=== PATIENT | male | born 1940 | race Caucasian/White ===

== ENCOUNTER 2021-03-31 20:40 | Emergency (ER) | payer OTHER ==
[~2021-03-31] VITALS: Ht 170.2 cm; Wt 59.3 kg
[~2021-03-31 20:40] MED LIST: ACET325T21 PO; DOCU-153 PO; MAG30ORA2 PO; MULT-246 PO; POLY17PO52 PO
[2021-03-31 20:45] VITALS: BP 133/59
--- NOTE | 2021-03-31 20:53 | ED.ADGEN ---
Past Medical History Past Medical History: Arthritis, Depression, Hypertension Past Surgical History: No Surgical History Smoking Status: Former Smoker Alcohol Use: None Drug Use: None General Adult EDM: Chief Complaint: MECHANICAL FALL HPI: HPI: Patient is a 81 year old male coming in from nursing facility after a fall out of bed. No loss conscious. Patient denies any complaints at this time but has a baseline dementia. No blood thinners. Patient states examinee pain at this time. Review of Systems: Review of Systems: All other systems within normal limits except for as noted in the HPI Allergies: Allergies: Allergies Coded Allergies Type Severity Reaction Last Updated Verified No Known Drug Allergies 03/06/21 No Physical Exam: PE: Constitutional: Well developed, well nourished, no acute distress, non-toxic appearance. [] HENT: Normocephalic, atraumatic, bilateral external ears normal, nose normal. Tenderness to palpation [] Eyes: PERRLA, conjunctiva normal, no discharge. [] Neck: No rigidity, supple, no stridor. No C-spine tenderness step-off or deformity [] Cardiovascular: Regular rate and rhythm, brisk cap refill [] Lungs & Thorax: Non labored symmetric respirations, no tachypnea or respiratory distress [] Abdomen: Soft, nondistended. Skin: Warm, dry, no erythema, no rash. [] Back: Unremarkable Extremities: No deformities, range of motion grossly intact, no lower extremity edema. Palpation of bilateral upper and lower extremities yielded no pain except for in the right shoulder. No chest or back pain. [] Neurologic: Alert and oriented X 3, no focal deficits noted. [] Psychologic: Affect normal, judgement normal, mood normal. [] EKG: EKG: [] Heart Score: C/O Chest Pain: No Risk Factors: Risk Factors: DM, Current or recent (<one month) smoker, HTN, HLP, family history of CAD, obesity. Risk Scores: Score 0 - 3: 2.5% MACE over next 6 weeks - Discharge Home Score 4 - 6: 20.3% MACE over next 6 weeks - Admit for Clinical Observation Score 7 - 10: 72.7% MACE over next 6 weeks - Early Invasive Strategies Radiology/Procedures: Radiology/Procedures: EXAM: XR SHOULDER_RIGHT 2+ VIEWS 03/31/2021 9:01 PM CLINICAL INDICATION: Fall, pain COMPARISON: None TECHNIQUE: 3 views of the right shoulder FINDINGS: The bones are diffusely demineralized, limiting evaluation for nondisplaced fracture. No displaced fracture. Alignment is normal. There is mild acromial clavicular degenerative joint disease. Subacromial space is preserved. There are calcified granulomas in the right lung base. IMPRESSION: No displaced fracture or dislocation. Osteopenia. [] Course & Med Decision Making: Course & Med Decision Making Pertinent Labs and Imaging studies reviewed. (See chart for details) [] Dragon Disclaimer: Dragon Disclaimer: This electronic medical record was generated, in whole or in part, using a voice recognition dictation system. Departure Departure Impression: Primary Impression: Fall from bed Additional Impression: Contusion of right shoulder region Disposition: 01 HOME / SELF CARE / HOMELESS Condition: STABLE Referrals: NGUYEN FONTAINE MD (PCP) Patient Instructions: Fall Prevention and Home Safety Problem Qualifiers JOEL SOLER MD March 31, 2021 20:53
--- NOTE | 2021-03-31 21:35 | RAD ---
EXAM: XR SHOULDER_RIGHT 2+ VIEWS 03/31/2021 9:01 PM CLINICAL INDICATION: Fall, pain COMPARISON: None TECHNIQUE: 3 views of the right shoulder FINDINGS: The bones are diffusely demineralized, limiting evaluation for nondisplaced fracture. No d isplaced fracture. Alignment is normal. There is mild acromial clavicular degenerative joint disease. Subacromial space is preserved. There are calcified granulomas in the right lung base. IMPRESSION: No displaced fracture or dislocation. Osteopenia. Electronically signed by: Sugar Beasley MD (03/31/2021 9:32 PM) [id number]
== END 2021-04-01 00:05 | disposition home or self-care (01) ==
LOC: ER 20:40
DX: S40.011A Contusion of right shoulder, initial encounter (principal); I10 Essential (primary) hypertension; F03.90 Unspecified dementia, unspecified severity, without behavioral disturbance, psychotic disturbance, mood disturbance, and anxiety; Z87.891 Personal history of nicotine dependence; W06.XXXA Fall from bed, initial encounter; Y93.89 Activity, other specified; Y92.89 Other specified places as the place of occurrence of the external cause; Y99.8 Other external cause status
CPT/HCPCS: 73030; 99283

== ENCOUNTER 2021-08-11 12:21 | Inpatient (IN) | payer OTHER ==
[~2021-08-11] VITALS: Ht 170.2 cm; Wt 53.7 kg
[~2021-08-11 12:21] MED LIST changes: +DOCU-148 PO; -DOCU-153 PO
--- NOTE | 2021-08-11 13:11 | PHYS DOC ---
Past Medical History Past Medical History: Arthritis, Depression, Hypertension ([facility]) Past Surgical History: No Surgical History ([facility]) Smoking Status: Former Smoker Alcohol Use: None Drug Use: None ([facility]) General Adult EDM: Chief Complaint: MECHANICAL FALL HPI: HPI: Patient is a 81 year old male who presents from intermediate with reported altered mental status x1 week. Patient is a very poor historian, so paperwork sent by intermediate as primary source. Patient has reportedly been refusing medications for 1 week. He has a suspected U TI with brown-colored urine and decreased urine output. Last night he removed his [place] catheter. Additionally, he has had multiple falls over the same time period. No further history can be obtained at this time. ([facility] [facility]) Review of Systems: Review of Systems: Unable to obtain secondary to patient's mental status. ([facility]) Heart Score: C/O Chest Pain: N/A ([facility]) Current Medications: Current Medications Medications (Trade) Dose Ordered Sig/Art Start Time Stop Time Status Last Admin Dose Admin Sodium Chloride 1,000 ml @ 1,000 mls/hr 1X ONCE 08/11/21 13:15 08/11/21 14:14 ([address] [facility]) Allergies: Allergies: Allergies Coded Allergies Type Severity Reaction Last Updated Verified No Known Drug Allergies 03/06/[address] [facility]) Physical Exam: PE: Constitutional: Thin, no acute distress, non-toxic appearance. HENT: Normocephalic, atraumatic, bilateral external ears normal, oropharynx moist, no oral exudates, some missing dentition, nose normal. Eyes: PERRLA, EOMI, conjunctiva normal, no discharge. Neck: Normal range of motion, no tenderness, supple, no stridor. Cardiovascular: Heart rate regular rhythm, no murmur. Lungs & Thorax: Bilateral breath sounds clear to auscultation. Abdomen: Bowel sounds normal, soft, no tenderness, no masses, no pulsatile masses. Skin: Diffuse ecchymosis of varying stages of healing on bilateral lower ex tremities. Skin otherwise warm, dry, no erythema, no rash. Back: No tenderness, no CVA tenderness. Extremities: No tenderness, no cyanosis, no clubbing, ROM intact, no edema. Neurologic: Alert and oriented x3, motor function 3/5 in extremities x4, normal sensory function, no focal deficits noted. Psychologic: Patient is somewhat uncooperative, but with repetitive requests, obliges. Affect irritable, fair judgment, mood normal. ([facility]) Current Patient Data: Labs: Laboratory Tests Test 08/11/21 13:56 08/11/21 14:08 White Blood Count 6.5 x10^3/uL (4.0-11.0) Red Blood Count 4.45 x10^6/uL (4.30-5.70) Hemoglobin 13.6 g/dL (13.0-17.5) Hematocrit 39.6 % (39.0-53.0) Mean Corpuscular Volume 89 fL (79-100) Mean Corpuscular Hemoglobin 31 pg (25-35) Mean Corpuscular Hemoglobin Concent 34 g/dL (31-37) Red Cell Distribution Width 13.1 % (11.5-14.5) Platelet Count 232 x10^3/uL (140-400) Neutrophils (%) (Auto) 71 % (31-73) Lymphocytes (%) (Auto) 19 % (24-48) Monocytes (%) (Auto) 7 % (0-9) Eosinophils (%) (Auto) 3 % (0-3) Basophils (%) (Auto) 1 % (0-3) Neutrophils # (Auto) 4.6 x10^3/uL (1.8-7.7) Lymphocytes # (Auto) 1.2 x10^3/uL (1.0-4.8) Monocytes # (Auto) 0.5 x10^3/uL (0.0-1.1) Eosinophils # (Auto) 0.2 x10^3/uL (0.0-0.7) Basophils # (Auto) 0.0 x10^3/uL (0.0-0.2) Sodium Level 143 mmol/L (136-145) Potassium Level 4.4 mmol/L (3.5-5.1) Chloride Level 106 mmol/L (98-107) Carbon Dioxide Level 27 mmol/L (21-32) Anion Gap 10 (6-14) Blood Urea Nitrogen 20 mg/dL (8-26) Creatinine 1.1 mg/dL (0.7-1.3) Estimated GFR (Cockcroft-Gault) 63.9 Glucose Level 90 mg/dL (70-99) Lactic Acid Level 1.2 mmol/L (0.4-2.0) Calcium Level 9.1 mg/dL (8.5-10.1) Creatine Kinase 48 U/L (39-308) Urine Collection Type Unknown Urine Color Janet Urine Clarity Clear Urine pH 6.0 (<5.0-8.0) Urine Specific [place] 1.025 (1.000-1.030) Urine Protein 100 mg/dL (NEG-TRACE) Urine Glucose (UA) Negative mg/dL (NEG) Urine Ketones (Stick) Trace mg/dL (NEG) Urine Blood Large (NEG) Urine Nitrite Positive (NEG) Urine Bilirubin Negative (NEG) Urine Urobilinogen Dipstick 1.0 mg/dL (0.2 mg/dL) Urine Leukocyte Esterase Moderate (NEG) Urine RBC >40 /HPF (0-2) Urine WBC >40 /HPF (0-4) Urine Bacteria Many /HPF (0-FEW) Vital Signs: Vital Signs Date Time Temp Pulse Resp B/P (MAP) Pulse Ox O2 Delivery O2 Flow Rate FiO2 08/11/21 12:21 97.9 71 16 131/67 (88) 98 Room Air 97.9 ([address] [facility]) EKG: EKG: EKG Interpreted by Dr. Carter: Regular rate 71 beats per and rhythm with no ectopic beats, some artifact noted. No concerning ST-T wave changes. Regular QR interval. ([facility]) Radiology/Procedures: Radiology/Procedures: PROCEDURE: CT HEAD AND CERVICAL SPINE WO CT HEAD WITHOUT CONTRAST 08/11/2021 1:08 PM Indication: Reason: falls / Spl. Instructions: / History: Comparison: CT of the head and cervical spine March 06, 2021 Procedure: Multidetector CT imaging of the head was performed without the administration of contrast. Findings: There is no evidence of acute intracranial hemorrhage. There is no evidence of acute territorial infarction. Please note that CT is limited for evaluation of acute ischemia. Cavum septum lucidum noted. No mass effect or midline shift is identified . The ventricles and basilar cisterns have an appropriate appearance. No abnormal extra-axial fluid collections are seen. No acute osseous changes are identified. Impression: No evidence of acute intracranial abnormality CT cervical spine without contrast. 08/11/2021 1:08 PM Indication:Reason: falls / Spl. Instructions: / History: Comparison Study: CT of the head and cervical spine March 06, 2021 Technique: Multidetector CT imaging of the cervical spine was obtained without administration of contrast. Findings: There is no evidence of acute fracture or alignment abnormality of the cervical spine. Vertebral body heights are maintained. Diffuse degenerative disc space. Posterior projecting disc osteophyte complex noted. Facet joints remain aligned. No prevertebral soft tissue edema is seen. The craniocervical junction and atlantoaxial junction remain intact.. Impression: No evidence of acute fracture or alignment abnormality of the cervical spine CT DOSING PQRS STATEMENT: One or more of the following individualized dose reduction techniques were utilized for this examination: 1. Automated exposure control 2. Adjustment of the mA and/or kV according to patient size 3. Use of iterative reconstruction technique Electronically signed by: Ishaan Moreau MD (08/11/2021 1:58 PM) [id number] PROCEDURE: PORTABLE CHEST 1V EXAM: Chest, single view. HISTORY: Altered mental status. COMPARISON: 03/06/2021 FINDINGS: A frontal view of the chest is obtained. There is suspected left basilar atelectasis or pleural parenchymal scarring. There are chronic interstitial changes. There are calcified granulomas. There is no consolidation, pleural effusion or pneumothorax. The heart is normal in size. IMPRESSION: Chronic appearing interstitial changes with left basilar atelectasis or scarring. Electronically signed by: Catrina Smith MD (08/11/2021 1:26 PM) [id number] ([facility]) Course & Med Decision Making: Course & Med Decision Making Pertinent Labs and Imaging studies reviewed. (See chart for details) Due to poor history and knowledge of patient's baseline, work-up will exclude sepsis. Will evaluate for head trauma as well as UTI. Work-up today is remarkable only for evidence of UTI. Due to patient's current mental status and reported refusal of medications, he will be admitted for inpatient antibiotic and fluid replacement treatment. ([facility]) Course & Med Decision Making I have reviewed and was available for consultation in the emergency department and I personally evaluated this patient that was seen by midlevel provider. Agree with plan. Bean Carter DO (BEAN CARTER DO) Ashley Disclaimer: Dragon Disclaimer: This electronic medical record was generated, in whole or in part, using a voice recognition dictation system. ([facility] [facility]) Departure Departure Impression: Primary Impression: UTI (urinary tract infection) Qualified Codes: T83.511A - Infection and inflammatory reaction due to indwelling urethral catheter, initial encounter; N39.0 - Urinary tract infection, site not specified Additional Impressions: AMS (altered mental status) Qualified Codes: R41.82 - Altered mental status, unspecified Noncompliance with medication regimen Disposition: ADMITTED INPATIENT Admitting Physician: JUSTINO Fraser) ([facility]) Condition: STABLE Referrals: NGUYEN FONTAINE MD (PCP) [facility] Aug 11, 2021 13:11 BEAN CARTER DO Aug 14, 2021 06:38
[2021-08-11] MEDS ORDERED: IV NORMAL SALINE 1000ML BAG 1,000 ML IV ONE (13:15)
--- NOTE | 2021-08-11 13:28 | RAD ---
EXAM: Chest, single view. HISTORY: Altered mental status. COMPARISON: 03/06/2021 FINDINGS: A frontal view of the chest is obtained. There is suspected left basilar atelectasis or ple ural parenchymal scarring. There are chronic interstitial changes. There are calcified granulomas. Th ere is no consolidation, pleural effusion or pneumothorax. The heart is normal in size. IMPRESSION: Chronic appearing interstitial changes with left basilar atelectasis or scarring. Electronically signed by: Catrina Smith MD (08/11/2021 1:26 PM) [id number]
--- NOTE | 2021-08-11 13:56 | EKG ---
[facility] [address] [place] [address] Test Date: 2021-08-11 Test Time: 13:48:19 Pat Name: HENRY SOUZA Department: Room: Gender: M Degree Clerk: : 1940 Requested By: ALNE MELENDREZ Order Number: [id number] Reading MD: Andrews Roberts Measurements Intervals Anderson Rate: 70 P: OR: QRS: 66 QRSD: 86 T: 52 QT: 388 QTc: 422 Interpretive Statements SINUS RHYTHM Electronically Signed On 08-13-2021 16:48:49 CDT by Andrews Roberts
--- NOTE | 2021-08-11 14:00 | RAD ---
CT HEAD WITHOUT CONTRAST 08/11/2021 1:08 PM Indication: Reason: falls / Spl. Instructions: / History: Comparison: CT of the head and cervical spine March 06, 2021 Procedure: Multidetector CT imaging of the head was performed without the administration of contrast. Findings: There is no evidence of acute intracranial hemorrhage. There is no evidence of acute territ orial infarction. Please note that CT is limited for evaluation of acute ischemia. Cavum septum lucid um noted. No mass effect or midline shift is identified . The ventricles and basilar cisterns have an appropriate appearance. No abnormal extra-axial fluid collections are seen. No acute osseous changes are identified. Impression: No evidence of acute intracranial abnormality CT cervical spine without contrast. 08/11/2021 1:08 PM Indication:Reason: falls / Spl. Instructions: / History: Comparison Study: CT of the head and cervical spine March 06, 2021 Technique: Multidetector CT imaging of the cervical spine was obtained without administration of cont rast. Findings: There is no evidence of acute fracture or alignment abnormality of the cervical spine. Vert ebral body heights are maintained. Diffuse degenerative disc space. Posterior projecting disc osteoph yte complex noted. Facet joints remain aligned. No prevertebral soft tissue edema is seen. The cranio cervical junction and atlantoaxial junction remain intact.. Impression: No evidence of acute fracture or alignment abnormality of the cervical spine CT DOSING PQRS STATEMENT: One or more of the following individualized dose reduction techniques were utilized for this examinat ion: 1. Automated exposure control 2. Adjustment of the mA and/or kV according to patient size 3. Use of iterative reconstruction technique Electronically signed by: Ishaan Moreau MD (08/11/2021 1:58 PM) [id number]
[2021-08-11 14:16] LABS: BASO % 1 % (0-3); EOS # 0.2 x10^3/uL (0.0-0.7); EOS % 3 % (0-3); HEMATOCRIT 39.6 % (39.0-53.0); HEMOGLOBIN 13.6 g/dL (13.0-17.5); LYMPH # 1.2 x10^3/uL (1.0-4.8); LYMPH % 19 % (24-48); MEAN CORPUSCULAR HEMOGLOBIN 31 pg (25-35); MEAN CORPUSCULAR HGB CONC 34 g/dL (31-37); MEAN CORPUSCULAR VOLUME 89 fL (79-100); MONO # 0.5 x10^3/uL (0.0-1.1); MONO % 7 % (0-9); NEUT # 4.6 x10^3/uL (1.8-7.7); NEUT % 71 % (31-73); PLATELET COUNT 232 x10^3/uL (140-400); RED BLOOD COUNT 4.45 x10^6/uL (4.30-5.70); RED CELL DISTRIBUTION WIDTH 13.1 % (11.5-14.5); WHITE BLOOD COUNT 6.5 x10^3/uL (4.0-11.0)
[2021-08-11 14:19] LABS: BILIRUBIN,URINE NEGATIVE (NEG); CLARITY,URINE CLEAR; COLOR,URINE AMBER; NITRITE,URINE POSITIVE (NEG); PROTEIN,URINE 100 mg/dL (NEG-TRACE)
[2021-08-11 14:25] LABS: CALCIUM 9.1 mg/dL (8.5-10.1); CREATININE 1.1 mg/dL (0.7-1.3); GFR 63.9; POTASSIUM 4.4 mmol/L (3.5-5.1)
[2021-08-11 14:34] LABS: BACTERIA,URINE MANY /HPF (0-FEW); RBC,URINE >40 /HPF (0-2); WBC,URINE >40 /HPF (0-4)
--- NOTE | 2021-08-11 16:13 | HP ---
ADMIT DATE: 08/11/2021 CHIEF COMPLAINT: Mechanical fall, UTI, mental status change. HISTORY OF PRESENT ILLNESS: The patient is a pleasant elderly male who resides at one of the nursing homes locally. Basically, he has been developing some mental status change, dysuria and then he had a mechanical fall. While here in the ER, he is noted to have a UTI with moderate leukocyte esterase and greater than 40 white cells. I discussed the case with ER physician. We are going to admit the patient, give him IV antibiotics and fluids. PAST MEDICAL HISTORY: Arthritis, depression, hypertension, previous tobacco abuse. ALLERGIES: None. FAMILY HISTORY: Diabetes. SOCIAL HISTORY: He does not drink, smoke or take drugs. He is retired. MEDICATIONS: Reviewed. Please refer to the MRAD. REVIEW OF SYSTEMS: Unable to obtain. The patient will not participate. He is too confused. PHYSICAL EXAMINATION: VITALS: Within normal limits and are stable. GENERAL: He is pleasantly confused, a little agitated at times. HEENT: Normal cephalic atraumatic, external auditory canals are patent. EYES: Extraocular muscles are intact, pupils are equally round and reactive to light and accommodation. MUSCULOSKELETAL: Well developed, well nourished, good range of motion. ENDOCRINE: No thyromegaly was palpated. LYMPHATICS: No cervical chain or axillary nodes were noted. HEMATOPOIETIC: No bruising. NECK: Supple, no JVD, no thyromegaly was noted. LUNGS: Clear to auscultation in all lung downey without rhonchi or wheezing. HEART: RRR, S1, S2 present. Peripheral pulses intact, no obvious murmurs were noted. ABDOMEN: Soft, nontender. Positive bowel sounds no organomegaly, normal bowel sounds. EXTREMITIES: Without any cyanosis, clubbing, or edema. Pedal pulses intact, Homans sign is negative. NEUROLOGIC: He is pleasantly confused, a little agitated at times. PSYCHIATRIC: He is pleasantly confused, a little agitated at times. SKIN: No ulcerations or rashes, good skin turgor, no jaundice. VASCULAR: Good capillary refill, neurovascular bundle appears to be intact. ASSESSMENT AND PLAN: Urinary tract infection with metabolic encephalopathy. The patient is being admitted. We will give him IV antibiotics, IV fluids, home medications. Deep vein thrombosis prophylaxis. Full code. ROCIO/LAURA DR: ROCIO/nts TID: [id number]
[2021-08-11] MEDS: cefTRIAXone IV Push 1 GM VIAL. IVP SCH (16:51)
[2021-08-11 18:00] VITALS: BP 128/69
[2021-08-11] MEDS ORDERED: MELA3TAB4 PO (18:50)
[2021-08-11] MEDS ORDERED: MIRT-7 PO (18:50)
[2021-08-11] MEDS ORDERED: DOCU100C28 PO (18:50)
[2021-08-11] MEDS ORDERED: IBUP-1027 PO (18:50)
[2021-08-11] MEDS ORDERED: TAMS0.4C97 PO (18:50)
[2021-08-11] MEDS ORDERED: TOLT2CAP PO (18:50)
[2021-08-11] MEDS: IV NORMAL SALINE 1000ML BAG 1,000 ML IV SCH (21:43)
[2021-08-11 23:00] VITALS: BP 201/63
[2021-08-12 03:07] VITALS: BP 111/47
[2021-08-12 07:00] VITALS: BP 119/51
[2021-08-12] MEDS: IV NORMAL SALINE 1000ML BAG 1,000 ML IV SCH ×2 (10:22→18:25)
[2021-08-12 11:00] VITALS: BP 113/45
--- NOTE | 2021-08-12 11:51 | PDOC ---
[employer] PROGRESS NOTE Date of Service DOS: DATE: 08/12/21 TIME: 11:46 Chief Complaint Chief Complaint Acute metabolic and infectious encephalopathy Acute cystitis, urine cultures positive for E. coli Mechanical fall History of depression History of hypertension History of arthritis Continue empiric IV antibiotics Pending urine culture sensitivities Continue PT OT modalities Disposition: Return to snf when UCx sensitivies return History of Present Illness History of Present Illness 81 male who resides at one of the nursing homes locally. Basically, he has been developing some mental status change, dysuria and then he had a mechanical fall. While here in the ER, he is noted to have a UTI with moderate leukocyte esterase and greater than 40 white cells. I discussed the case with ER physician. We are going to admit the patient, give him IV antibiotics and fluids. 08/12/2021 No acute events overnight. Patient seen examined bedside. Resting comfortably without any distress. No concerns nursing. Vitals/I&O Vitals/I&O: Vital Signs Date Time Temp Pulse Resp B/P (MAP) Pulse Ox O2 Delivery O2 Flow Rate FiO2 08/12/21 08:00 Room Air 08/12/21 07:00 97.5 68 19 119/51 (73) 94 97.5 I & O0 08/11/21 08/11/21 08/12/21 15:00 23:00 07:00 Output Total 450 ml Balance -450 ml Physical Exam General: Alert Heart: Regular rate Lungs: Clear, Wheezing, Crackles Abdomen: No tenderness Labs Labs: Laboratory Tests Test 08/11/21 13:56 08/11/21 14:08 White Blood Count 6.5 x10^3/uL (4.0-11.0) Red Blood Count 4.45 x10^6/uL (4.30-5.70) Hemoglobin 13.6 g/dL (13.0-17.5) Hematocrit 39.6 % (39.0-53.0) Mean Corpuscular Volume 89 fL (79-100) Mean Corpuscular Hemoglobin 31 pg (25-35) Mean Corpuscular Hemoglobin Concent 34 g/dL (31-37) Red Cell Distribution Width 13.1 % (11.5-14.5) Platelet Count 232 x10^3/uL (140-400) Neutrophils (%) (Auto) 71 % (31-73) Lymphocytes (%) (Auto) 19 % (24-48) Monocytes (%) (Auto) 7 % (0-9) Eosinophils (%) (Auto) 3 % (0-3) Basophils (%) (Auto) 1 % (0-3) Neutrophils # (Auto) 4.6 x10^3/uL (1.8-7.7) Lymphocytes # (Auto) 1.2 x10^3/uL (1.0-4.8) Monocytes # (Auto) 0.5 x10^3/uL (0.0-1.1) Eosinophils # (Auto) 0.2 x10^3/uL (0.0-0.7) Basophils # (Auto) 0.0 x10^3/uL (0.0-0.2) Sodium Level 143 mmol/L (136-145) Potassium Level 4.4 mmol/L (3.5-5.1) Chloride Level 106 mmol/L (98-107) Carbon Dioxide Level 27 mmol/L (21-32) Anion Gap 10 (6-14) Blood Urea Nitrogen 20 mg/dL (8-26) Creatinine 1.1 mg/dL (0.7-1.3) Estimated GFR (Cockcroft-Gault) 63.9 Glucose Level 90 mg/dL (70-99) Lactic Acid Level 1.2 mmol/L (0.4-2.0) Calcium Level 9.1 mg/dL (8.5-10.1) Creatine Kinase 48 U/L (39-308) Urine Collection Type Unknown Urine Color Janet Urine Clarity Clear Urine pH 6.0 (<5.0-8.0) Urine Specific [place] 1.025 (1.000-1.030) Urine Protein 100 mg/dL (NEG-TRACE) Urine Glucose (UA) Negative mg/dL (NEG) Urine Ketones (Stick) Trace mg/dL (NEG) Urine Blood Large (NEG) Urine Nitrite Positive (NEG) Urine Bilirubin Negative (NEG) Urine Urobilinogen Dipstick 1.0 mg/dL (0.2 mg/dL) Urine Leukocyte Esterase Moderate (NEG) Urine RBC >40 /HPF (0-2) Urine WBC >40 /HPF (0-4) Urine Bacteria Many /HPF (0-FEW) Assessment and Plan Assessmemt and Plan Problems Medical Problems: (1) AMS (altered mental status) Status: Acute (2) Noncompliance with medication regimen Status: Acute (3) UTI (urinary tract infection) Status: Acute Comment Review of Relevant I have reviewed the following items [email or web address] (where applicable) has been applied. Medications: Current Medications Medications (Trade) Dose Ordered Sig/Art Route PRN Reason Start Time Stop Time Status Last Admin Dose Admin Sodium Chloride 1,000 ml @ 1,000 mls/hr 1X ONCE IV 08/11/21 13:15 08/11/21 14:14 DC 08/11/21 14:20 Ceftriaxone Sodium (Rocephin) 1 gm Q24H IVP 08/11/21 16:00 08/11/21 16:51 Sodium Chloride 1,000 ml @ 75 mls/hr [id number] IV 08/11/21 15:45 08/12/21 10:22 Justifications for Admission Other Justification ROSIE CHERRY MD Aug 12, 2021 11:51
[2021-08-12 15:00] VITALS: BP 93/40
[2021-08-12] MEDS: cefTRIAXone IV Push 1 GM VIAL. IVP SCH (16:00)
[2021-08-12 19:00] VITALS: BP 116/54
--- NOTE | 2021-08-12 22:18 | NUR ---
Patient's IV discontinued at shift change, previous nurse Becki charted against giving Rocephin. This nurse started IV in right AC. IV fluids resumed. Pump beeping at 2210. IV was infiltrated, patient's arm red, swollen, painful. Patient was combative, not wanting IV removed. This nurse and tech Kerrie removed IV from arm. No IV access at this time as patient is refusing new IV site or fluids to continue or further treatment at this time.
[2021-08-12 23:00] VITALS: BP 123/59
[2021-08-13 03:00] VITALS: BP 121/62
[2021-08-13 07:00] VITALS: BP 131/60
[2021-08-13] MEDS: IV NORMAL SALINE 1000ML BAG 1,000 ML IV SCH ×2 (07:45→21:05)
--- NOTE | 2021-08-13 10:38 | PDOC ---
[employer] PROGRESS NOTE Date of Service DOS: DATE: 08/13/21 TIME: 10:37 Chief Complaint Chief Complaint Acute metabolic and infectious encephalopathy Acute cystitis, urine cultures positive for E. coli Mechanical fall History of depression History of hypertension History of arthritis Continue empiric IV antibiotics Pending urine culture sensitivities Continue PT OT modalities Disposition: Return to halfway when UCx sensitivies return History of Present Illness History of Present Illness 81 male who resides at one of the nursing homes locally. Basically, he has been developing some mental status change, dysuria and then he had a mechanical fall. While here in the ER, he is noted to have a UTI with moderate leukocyte esterase and greater than 40 white cells. I discussed the case with ER physician. We are going to admit the patient, give him IV antibiotics and fluids. 08/12/2021 No acute events overnight. Patient seen examined bedside. Resting comfortably without any distress. No concerns nursing. 08/13/2021 No acute events overnight. Patient pleasantly confused and just wants his pajama pants on. No concerns nursing at this time. Patient's chart, labs, images were reviewed and discussed with RN Vitals/I&O Vitals/I&O: Vital Signs Date Time Temp Pulse Resp B/P (MAP) Pulse Ox O2 Delivery O2 Flow Rate FiO2 08/13/21 07:00 97.6 73 18 131/60 (83) 97 Room Air 97.6 I & O 08/12/21 08/12/21 08/13/21 15:00 23:00 07:00 Intake Total 360 ml Output Total 400 ml 100 ml 465 ml Balance -400 ml -100 ml -105 ml Physical Exam General: Alert Heart: Regular rate Lungs: Clear, Wheezing, Crackles Abdomen: No tenderness Extremities: No clubbing Skin: No rashes, No breakdown Assessment and Plan Assessmemt and Plan Problems Medical Problems: (1) AMS (altered mental status) Status: Acute (2) Noncompliance with medication regimen Status: Acute (3) UTI (urinary tract infection) Status: Acute Comment Review of Relevant I have reviewed the following items eusebio (where applicable) has been applied. Justifications for Admission Other Justification ROSIE CHERRY MD Aug 13, 2021 10:38
[2021-08-13 11:00] VITALS: BP 106/58
[2021-08-13] MEDS: CEFDINIR 300 MG CAPSULE PO SCH ×2 (13:24→21:00)
[2021-08-13 15:00] VITALS: BP 113/60
[2021-08-13 19:00] VITALS: BP 148/48
[2021-08-13] MEDS: LACTOBACILLUS RHAMNOSUS GG 1 CAPSULE. PO SCH (21:00)
[2021-08-13 23:00] VITALS: BP 125/58
[2021-08-14 07:00] VITALS: BP 107/38
[2021-08-14] MEDS: LACTOBACILLUS RHAMNOSUS GG 1 CAPSULE. PO SCH ×3 (09:58→20:04)
[2021-08-14] MEDS: CEFDINIR 300 MG CAPSULE PO SCH (09:58)
[2021-08-14] MEDS: IV NORMAL SALINE 1000ML BAG 1,000 ML IV SCH ×2 (10:25→20:03)
[2021-08-14] MEDS ORDERED: ACETAMINOPHEN 325 MG TABLET. PO PRN (10:30)
[2021-08-14] MEDS ORDERED: ONDANSETRON PF 4 MG/2 ML VIAL. IVP PRN (10:30)
--- NOTE | 2021-08-14 10:34 | PDOC ---
[facility] [facility] PROGRESS NOTE Date of Service DOS: DATE: 08/14/21 TIME: 10:32 Chief Complaint Chief Complaint Acute metabolic and infectious encephalopathy Acute cystitis, - ESBL UTI Mechanical fall History of depression History of hypertension History of arthritis Continue empiric IV antibiotics Continue PT OT modalities Disposition: Return to group home after completing course of antibiotics History of Present Illness History of Present Illness 81 male who resides at one of the nursing homes locally. Basically, he has been developing some mental status change, dysuria and then he had a mechanical fall. While here in the ER, he is noted to have a UTI with moderate leukocyte esterase and greater than 40 white cells. Admitted on IV rocephin 08/12: No acute events overnight. Patient seen examined bedside. Resting comfortably without any distress. No concerns nursing. 08/13: No acute events overnight. Patient pleasantly confused and just wants his pajama pants on. No concerns nursing at this time. Lost IV acces, given PO cefdinir No overnight events. Urine returned E. coli ESBL. Duckworth catheter still in place. Discussed will need to get several doses of IV meropenem and then p.o. fosfomycin prior to discharge back to SNF. Will obtain CT abdomen pelvis to rule out obstructive uropathy. Vitals/I&O Vitals/I&O: Vital Signs Date Time Temp Pulse Resp B/P (MAP) Pulse Ox O2 Delivery O2 Flow Rate FiO2 08/14/21 08:00 Room Air 08/14/21 07:00 98.2 64 16 107/38 (61) 95 98.2 I & O 08/13/21 08/13/21 08/14/21 15:00 23:00 07:00 Output Total 440 ml 275 ml Balance -440 ml -275 ml Physical Exam General: Alert Heart: Regular rate Lungs: Clear, Wheezing, Crackles Abdomen: No tenderness Extremities: No clubbing Skin: No rashes, No breakdown Assessment and Plan Assessmemt and Plan Problems Medical Problems: (1) AMS (altered mental status) Status: Acute (2) Noncompliance with medication regimen Status: Acute (3) UTI (urinary tract infection) Status: Acute Comment Review of Relevant I have reviewed the following items eusebio (where applicable) has been applied. Medications: Current Medications Medications (Trade) Dose Ordered Sig/Art Route PRN Reason Start Time Stop Time Status Last Admin Dose Admin Lactobacillus Rhamnosus (Culturelle) 1 cap BID PO 08/13/21 21:00 08/14/21 09:58 Cefdinir (Omnicef) 300 mg BID PO 08/13/21 11:00 08/14/21 10:30 DC 08/14/21 09:58 Justifications for Admission Other Justification RAVINDER WIN MD Aug 14, 2021 10:34
[2021-08-14 11:00] VITALS: BP 120/51
[2021-08-14] MEDS: DOCUSATE SODIUM 100 MG CAPSULE. PO SCH ×3 (11:00→20:04)
[2021-08-14] MEDS ORDERED: MEROPENEM 500 MG in IV NORMAL SALINE 50ML 50 ML IV SCH (11:00)
--- NOTE | 2021-08-14 11:56 | CONS ---
DATE OF CONSULTATION: 08/14/2021 REFERRING PHYSICIAN: Dr. Thompson. REASON FOR CONSULTATION: ESBL producing E. coli UTI. HISTORY OF PRESENT ILLNESS: This is an 81-year-old gentleman with dementia who lives in independent living, who does have a Duckworth catheter chronically, he does not know why he has Duckworth catheter, who came in after having a fall. The patient also had a reportedly mental status change. The patient had been receiving Rocephin. The urine culture is positive with ESBL producing E. coli. The patient denies any nausea, vomiting, diarrhea. Denies any chest pain, shortness of breath, abdominal pain, urinary symptoms or bowel symptoms. Denies any fever or chills. PAST MEDICAL HISTORY: Positive for hypertension, arthritis, depression. SOCIAL HISTORY: Negative for smoking, alcohol, or illicit drug use. The patient lives in an assisted care. MEDICATIONS: Reviewed. ALLERGIES: No known drug allergies. CURRENT MEDICATIONS: Reviewed. REVIEW OF SYSTEMS: As per HPI. All other systems reviewed and are negative. PHYSICAL EXAMINATION: GENERAL: Alert and oriented gentleman who is very forgetful, not in distress. VITAL SIGNS: Stable, afebrile. HEENT: NAD. NECK: Supple, no JVP, no lymphadenopathy. LUNGS: Clear. HEART: S1, S2, regular. ABDOMEN: Soft, nontender, no organomegaly. EXTREMITIES: No edema, cyanosis. SKIN: Unremarkable. NEUROLOGIC: The patient is alert, awake, and appropriate. Does answer simple questions, but the memory is very poor. No focal deficit. LABORATORY DATA: White count is normal. BUN and creatinine is normal. Urinalysis showed more than 40 wbc's. Urine culture is positive with ESBL producing E. coli. It is resistant to fluoroquinolone also. CT of the abdomen and pelvis is pending. Rest of the x-ray and CT of the head and neck is unremarkable for any acute changes. IMPRESSION: 1. Catheter associated urinary tract infection with Extended spectrum beta-lactamases producing Escherichia coli. 2. Status post fall. 3. Encephalopathy. 4. Dementia. 5. 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 RECOMMENDATIONS: Advised meropenem. The patient actually can be discharged on IV Invanz to be done at his facility if that can be arranged. We will check the CT. Thank you very much, Dr. Thompson, for giving me opportunity to participate in this patient's care. HELIO/RIN DR: Harvey TID: [id number]
[2021-08-14] MEDS ORDERED: ERTAPENEM 1 GM VIAL IM ONE (13:00)
[2021-08-14] MEDS: OXYBUTYNIN CHLORIDE 5 MG TABLET PO SCH ×3 (13:20→20:05)
[2021-08-14] MEDS: MULTIVITAMIN with MINERAL TABLET. PO SCH (13:20)
--- NOTE | 2021-08-14 13:40 | RAD ---
Study: CT of the abdomen and pelvis without contrast Comparison: None Clinical Indication: UTI, pain, concern for obstructive uropathy/stone Technique: Contiguous axial images are obtained from the apex of the diaphragm to the pelvic floor. S agittal and coronal reformations are evaluated. Dose Reduction: One or more of the following individualized dose reduction techniques were utilized f or this examination: 1. Automated exposure control, 2. Adjustment of the mA and/or kV according to p atient size, 3. Use of iterative reconstruction technique FINDINGS: Evaluation of the solid organ parenchyma is limited by lack of IV Contrast. Evaluation of the hollow enteric structures is limited by Lack of oral contrast. Lung bases: Linear opacities at the lung bases likely atelectasis. Calcifications likely on the basis of prior granulomatous disease. Lower Mediastinum: Grossly unremarkable Liver: Normal in size and contour. Fluid attenuating lesion at the dome the liver likely a cyst. Biliary: No intra or extra hepatic biliary ductal dilatation. Gallbladder: Partially fluid distended and grossly unremarkable with no radiographically discernible stones. No pericholecystic fluid. Pancreas: Normal. Spleen: Grossly unremarkable Adrenals: Grossly unremarkable Kidneys: Free of any hydronephrosis, nephrolithiasis or focal solid parenchymal abnormality. Fluid at tenuation lesion at the lower pole the right kidney likely a cyst. Gastroduodenum: Grossly unremarkable. Bowel: No areas of focal dilatation or adjacent inflammatory change. There is diverticulosis coli wit hout evidence of diverticulitis. Appendix: Not visualized Mesentery: No free or loculated fluid collections. No pathologic lymphadenopathy. Retroperitoneum: No suspicious masses or lymphadenopathy. Bladder: Partially fluid distended and grossly unremarkable. Duckworth balloon is seen within the bladder with small foci of intraluminal air.. Calcification at the dependent posterior wall of the bladder. Reproductive pelvic organs: The prostate is enlarged. Round soft tissue mass in the right inguinal ca nal likely patient's testicle. Small fat-containing right inguinal hernia. Vascular:Aorta is nonaneurysmal. Bones:No suspicious osteoblastic or osteolytic bone lesions. Moderate multifocal facet arthrosis at m ultiple lower lumbar levels IMPRESSION: No nephrolithiasis or hydronephrosis. Patient has a large prostate with a Duckworth within the bladder. T here is moderate distention of the bladder. Calcification at the dependent posterior wall of the blad kaylie may relate to a small bladder calculus. Electronically signed by: Jamshid Barajas (08/14/2021 1:38 PM) [id number]
[2021-08-14 15:00] VITALS: BP 108/47
--- NOTE | 2021-08-14 15:49 | NUR ---
SW following. Discussed with RN, pt from [facility], room air, cardiac diet. PT originally recommending SNF - OT hadn't yet worked with therapy. Therapy tried 3 times to work with patient, but pt declined all three times. Pt on PO abx. SW notified RN of need for PCR COVID test for potential placement. SW will continue to follow.
[2021-08-14 19:00] VITALS: BP 106/44
[2021-08-14] MEDS: MIRTAZAPINE 15 MG TABLET PO SCH ×2 (19:59→20:05)
[2021-08-14] MEDS: TAMSULOSIN 0.4 MG CAP.ER.24H. PO SCH ×2 (19:59→20:05)
[2021-08-14] MEDS ORDERED: NON FORMULARY ITEM (Melatonin 2 TAB) PO SCH (21:00)
[2021-08-14 22:51] VITALS: BP 107/44
[2021-08-15 03:29] VITALS: BP 102/47
[2021-08-15 07:00] VITALS: BP 113/43
--- NOTE | 2021-08-15 07:16 | PDOC ---
[employer] [facility] PROGRESS NOTE Date of Service DOS: DATE: 08/15/21 TIME: 07:15 Chief Complaint Chief Complaint Acute metabolic and infectious encephalopathy Acute cystitis, - ESBL UTI Mechanical fall History of depression History of hypertension History of arthritis Continue empiric IV antibiotics Continue PT OT modalities Disposition: Return to intermediate after completing course of antibiotics History of Present Illness History of Present Illness 81 male who resides at one of the nursing homes locally. Basically, he has been developing some mental status change, dysuria and then he had a mechanical fall. While here in the ER, he is noted to have a UTI with moderate leukocyte esterase and greater than 40 white cells. Admitted on IV rocephin 08/12: No acute events overnight. Patient seen examined bedside. Resting comfortably without any distress. No concerns nursing. 08/13: No acute events overnight. Patient pleasantly confused and just wants his pajama pants on. No concerns nursing at this time. Lost IV acces, given PO cefdinir 08/14: No overnight events. Urine returned E. coli ESBL. Duckworth catheter still in place. Discussed will need to get several doses of IV meropenem and then p.o. fosfomycin prior to discharge back to SNF. Will obtain CT abdomen pelvis to rule out obstructive uropathy. No OE. Refused IV insertion. Given IM invanz. Discussed with ID to give an additional dose of IM Invanz today and fosfomycin 3 doses every other day to complete his course for ESBL UTI. Then to discharge home with home health. Vitals/I&O Vitals/I&O: Vital Signs Date Time Temp Pulse Resp B/P (MAP) Pulse Ox O2 Delivery O2 Flow Rate FiO2 08/15/21 03:29 98.2 57 18 102/47 (65) 96 Room Air 98.2 I & O 08/14/21 08/14/21 08/15/21 15:00 23:00 07:00 Intake Total 240 ml 0 ml Output Total 500 ml Balance 240 ml -500 ml Physical Exam General: Alert Heart: Regular rate Lungs: Clear, Wheezing, Crackles Abdomen: No tenderness Extremities: No clubbing Skin: No rashes, No breakdown Assessment and Plan Assessmemt and Plan Problems Medical Problems: (1) AMS (altered mental status) Status: Acute (2) Noncompliance with medication regimen Status: Acute (3) UTI (urinary tract infection) Status: Acute Comment Review of Relevant I have reviewed the following items eusebio (where applicable) has been applied. Medications: Current Medications Medications (Trade) Dose Ordered Sig/Art Route PRN Reason Start Time Stop Time Status Last Admin Dose Admin Docusate Sodium (Colace) 200 mg BID PO 08/14/21 11:00 08/14/21 11:00 Multivitamins (Thera M Plus) 1 tab DAILY PO 08/14/21 11:00 08/14/21 13:20 Oxybutynin Chloride (Ditropan) 5 mg BID PO 08/14/21 11:00 08/14/21 13:20 Ertapenem (INVanz) 1 gm Q24H ONCE IM 08/14/21 13:00 08/14/21 13:01 DC 08/14/21 13:20 Justifications for Admission Other Justification RAVINDER WIN MD Aug 15, 2021 07:16
[2021-08-15 09:26] LABS: BASO % 1 % (0-3); EOS # 0.6 x10^3/uL (0.0-0.7); EOS % 11 % (0-3); HEMATOCRIT 39.6 % (39.0-53.0); HEMOGLOBIN 13.5 g/dL (13.0-17.5); LYMPH # 1.6 x10^3/uL (1.0-4.8); LYMPH % 29 % (24-48); MEAN CORPUSCULAR HEMOGLOBIN 30 pg (25-35); MEAN CORPUSCULAR HGB CONC 34 g/dL (31-37); MEAN CORPUSCULAR VOLUME 88 fL (79-100); MONO # 0.3 x10^3/uL (0.0-1.1); MONO % 6 % (0-9); NEUT # 2.9 x10^3/uL (1.8-7.7); NEUT % 54 % (31-73); PLATELET COUNT 240 x10^3/uL (140-400); RED BLOOD COUNT 4.48 x10^6/uL (4.30-5.70); RED CELL DISTRIBUTION WIDTH 13.6 % (11.5-14.5); WHITE BLOOD COUNT 5.5 x10^3/uL (4.0-11.0)
[2021-08-15] MEDS ORDERED: FOSF3PAC4 PO (09:50)
[2021-08-15] MEDS: MULTIVITAMIN with MINERAL TABLET. PO SCH (09:51)
[2021-08-15] MEDS: DOCUSATE SODIUM 100 MG CAPSULE. PO SCH ×2 (09:51→17:41)
[2021-08-15] MEDS: LACTOBACILLUS RHAMNOSUS GG 1 CAPSULE. PO SCH ×2 (09:51→17:41)
[2021-08-15] MEDS: OXYBUTYNIN CHLORIDE 5 MG TABLET PO SCH ×2 (09:51→17:41)
[2021-08-15 09:58] LABS: ALBUMIN 2.4 g/dL (3.4-5.0); ALBUMIN/GLOBULIN RATIO 0.8 (1.0-1.7); CALCIUM 8.1 mg/dL (8.5-10.1); GFR 71.4; POTASSIUM 3.8 mmol/L (3.5-5.1); TOTAL BILIRUBIN 0.5 mg/dL (0.2-1.0); TOTAL PROTEIN 5.6 g/dL (6.4-8.2)
--- NOTE | 2021-08-15 10:38 | PDOC ---
Infectious Disease Note Subjective Subjective Patient is feeling good says DEMI SIMMS No nausea vomiting diarrhea abdominal pain Vital Sign Vital Signs Vital Signs Date Time Temp Pulse Resp B/P (MAP) Pulse Ox O2 Delivery O2 Flow Rate FiO2 08/15/21 08:00 Room Air 08/15/21 07:00 97.9 61 18 113/43 (66) 94 97.9 Physical Exam PHYSICAL EXAM PHYSICAL EXAMINATION: GENERAL: Alert and oriented gentleman who is very forgetful, not in distress. VITAL SIGNS: Stable, afebrile. HEENT: NAD. NECK: Supple, no JVP, no lymphadenopathy. LUNGS: Clear. HEART: S1, S2, regular. ABDOMEN: Soft, nontender, no organomegaly. EXTREMITIES: No edema, cyanosis. SKIN: Unremarkable. NEUROLOGIC: The patient is alert, awake, and appropriate. Does answer simple questions, but the memory is very poor. No focal deficit. Labs Lab Laboratory Tests Test 08/14/21 17:55 08/15/21 08:40 SARS-CoV-2 RNA (COLIN) Negative (Negative) White Blood Count 5.5 x10^3/uL (4.0-11.0) Red Blood Count 4.48 x10^6/uL (4.30-5.70) Hemoglobin 13.5 g/dL (13.0-17.5) Hematocrit 39.6 % (39.0-53.0) Mean Corpuscular Volume 88 fL (79-100) Mean Corpuscular Hemoglobin 30 pg (25-35) Mean Corpuscular Hemoglobin Concent 34 g/dL (31-37) Red Cell Distribution Width 13.6 % (11.5-14.5) Platelet Count 240 x10^3/uL (140-400) Neutrophils (%) (Auto) 54 % (31-73) Lymphocytes (%) (Auto) 29 % (24-48) Monocytes (%) (Auto) 6 % (0-9) Eosinophils (%) (Auto) 11 % (0-3) Basophils (%) (Auto) 1 % (0-3) Neutrophils # (Auto) 2.9 x10^3/uL (1.8-7.7) Lymphocytes # (Auto) 1.6 x10^3/uL (1.0-4.8) Monocytes # (Auto) 0.3 x10^3/uL (0.0-1.1) Eosinophils # (Auto) 0.6 x10^3/uL (0.0-0.7) Basophils # (Auto) 0.0 x10^3/uL (0.0-0.2) Sodium Level 142 mmol/L (136-145) Potassium Level 3.8 mmol/L (3.5-5.1) Chloride Level 108 mmol/L (98-107) Carbon Dioxide Level 26 mmol/L (21-32) Anion Gap 8 (6-14) Blood Urea Nitrogen 14 mg/dL (8-26) Creatinine 1.0 mg/dL (0.7-1.3) Estimated GFR (Cockcroft-Gault) 71.4 BUN/Creatinine Ratio 14 (6-20) Glucose Level 71 mg/dL (70-99) Calcium Level 8.1 mg/dL (8.5-10.1) Total Bilirubin 0.5 mg/dL (0.2-1.0) Aspartate Amino Transf (AST/SGOT) 16 U/L (15-37) Alanine Aminotransferase (ALT/SGPT) 12 U/L (16-63) Alkaline Phosphatase 61 U/L (46-116) Total Protein 5.6 g/dL (6.4-8.2) Albumin 2.4 g/dL (3.4-5.0) Albumin/Globulin Ratio 0.8 (1.0-1.7) Micro Urine with ESBL E. coli Objective Assessment IMPRESSION: 1. Catheter associated urinary tract infection with Extended spectrum beta-lactamases producing Escherichia coli. 2. Status post fall. 3. Encephalopathy. 4. Dementia. 5. 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 Plan Plan of Care Patient is getting Invanz IM 1 dose today and if insurance is willing to pay fosfomycin 3 doses alternate day patient can be discharged d/w LUIS Medina MD Aug 15, 2021 10:38
[2021-08-15 11:00] VITALS: BP 114/48
[2021-08-15] MEDS: IV NORMAL SALINE 1000ML BAG 1,000 ML IV SCH (13:05)
[2021-08-15] MEDS ORDERED: ERTAPENEM 1 GM VIAL IM ONE (17:30)
[2021-08-15] MEDS: TAMSULOSIN 0.4 MG CAP.ER.24H. PO SCH (17:41)
[2021-08-15] MEDS: MIRTAZAPINE 15 MG TABLET PO SCH (17:41)
[2021-08-15 19:00] VITALS: BP_SYST 132; BP_SYST 232; BP_DIAS 51
[2021-08-16] MEDS: IV NORMAL SALINE 1000ML BAG 1,000 ML IV SCH ×3 (02:17→21:56)
[2021-08-16 03:00] VITALS: BP 101/47
[2021-08-16 07:00] VITALS: BP 103/49
--- NOTE | 2021-08-16 09:44 | PDOC ---
Infectious Disease Note Subjective Subjective Patient is feeling good says ROS ROS No nausea vomiting diarrhea Vital Sign Vital Signs Vital Signs Date Time Temp Pulse Resp B/P (MAP) Pulse Ox O2 Delivery O2 Flow Rate FiO2 08/16/21 07:00 98.0 60 17 103/49 (67) 97 Room Air 98.0 Physical Exam PHYSICAL EXAM PHYSICAL EXAMINATION: GENERAL: Alert and oriented gentleman who is very forgetful, not in distress. VITAL SIGNS: Stable, afebrile. HEENT: NAD. NECK: Supple, no JVP, no lymphadenopathy. LUNGS: Clear. HEART: S1, S2, regular. ABDOMEN: Soft, nontender, no organomegaly. EXTREMITIES: No edema, cyanosis. SKIN: Unremarkable. NEUROLOGIC: The patient is alert, awake, and appropriate. Does answer simple questions, but the memory is very poor. No focal deficit. Labs Micro Urine with ESBL E. coli Objective Assessment IMPRESSION: 1. Catheter associated urinary tract infection with Extended spectrum beta-lactamases producing Escherichia coli. 2. Status post fall. 3. Encephalopathy. 4. Dementia. 5. 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 Plan Plan of Care Patient is getting Invanz IM 1 dose today and if insurance is willing to pay fosfomycin 3 doses alternate day patient can be discharged d/w LUIS Medina MD Aug 16, 2021 09:44
[2021-08-16] MEDS: MULTIVITAMIN with MINERAL TABLET. PO SCH (09:52)
[2021-08-16] MEDS: LACTOBACILLUS RHAMNOSUS GG 1 CAPSULE. PO SCH ×2 (09:52→20:27)
[2021-08-16] MEDS: OXYBUTYNIN CHLORIDE 5 MG TABLET PO SCH ×2 (09:53→20:27)
[2021-08-16] MEDS: DOCUSATE SODIUM 100 MG CAPSULE. PO SCH ×2 (09:53→20:27)
[2021-08-16 11:00] VITALS: BP 91/44
--- NOTE | 2021-08-16 13:35 | NUR ---
SS following for discharge planning. SS reviewed pt chart and discussed with pt RN. Pt is Assisted Living resident from [facility], ; fax [phone]. Pt is currently on room air. COVID19 negative. PT/OT ordered and pt declining. SS will continue to follow for discharge planning.
[2021-08-16 15:00] VITALS: BP 105/46
--- NOTE | 2021-08-16 18:00 | PDOC ---
[employer] [facility] PROGRESS NOTE Date of Service DOS: DATE: 08/16/21 TIME: 17:58 Chief Complaint Chief Complaint Acute metabolic and infectious encephalopathy Acute cystitis, - ESBL UTI Mechanical fall History of depression History of hypertension History of arthritis Continue empiric IV antibiotics Continue PT OT modalities Disposition: Return to group home after completing course of antibiotics History of Present Illness History of Present Illness 81 male who resides at one of the nursing homes locally. Basically, he has been developing some mental status change, dysuria and then he had a mechanical fall. While here in the ER, he is noted to have a UTI with moderate leukocyte esterase and greater than 40 white cells. Admitted on IV rocephin 08/12: No acute events overnight. Patient seen examined bedside. Resting comfortably without any distress. No concerns nursing. 08/13: No acute events overnight. Patient pleasantly confused and just wants his pajama pants on. No concerns nursing at this time. Lost IV acces, given PO cefdinir 08/14: No overnight events. Urine returned E. coli ESBL. Duckworth catheter still in place. Discussed will need to get several doses of IV meropenem and then p.o. fosfomycin prior to discharge back to SNF. Will obtain CT abdomen pelvis to rule out obstructive uropathy. 08/15: No OE. Refused IV insertion. Given IM invanz. Discussed with ID to give an additional dose of IM Invanz today and fosfomycin 3 doses every other day to complete his course for ESBL UTI. Then to discharge home with home health. 08/16: No complaints today. We will continue IM Invanz. Insurance pending, may provide fosfomycin 3 doses every other day to complete treatment for ESBL UTI. Then likely home with home health. Discussed with RN. Vitals/I&O Vitals/I&O: Vital Signs Date Time Temp Pulse Resp B/P (MAP) Pulse Ox O2 Delivery O2 Flow Rate FiO2 08/16/21 11:00 98.2 65 17 91/44 (60) 99 Room Air 98.2 I & O 08/15/21 08/15/21 08/16/21 15:00 23:00 07:00 Intake Total 0 ml 200 ml Output Total 400 ml 270 ml 800 ml Balance -400 ml -270 ml -600 ml Physical Exam Physical Exam: PHYSICAL EXAMINATION: GENERAL: Alert and oriented gentleman who is very forgetful, not in distress. VITAL SIGNS: Stable, afebrile. HEENT: NAD. NECK: Supple, no JVP, no lymphadenopathy. LUNGS: Clear. HEART: S1, S2, regular. ABDOMEN: Soft, nontender, no organomegaly. EXTREMITIES: No edema, cyanosis. SKIN: Unremarkable. NEUROLOGIC: The patient is alert, awake, and appropriate. Does answer simple questions, but the memory is very poor. No focal deficit. General: Alert Heart: Regular rate Lungs: Clear, Wheezing, Crackles Abdomen: No tenderness Extremities: No clubbing Skin: No rashes, No breakdown Assessment and Plan Assessmemt and Plan Problems Medical Problems: (1) AMS (altered mental status) Status: Acute (2) Noncompliance with medication regimen Status: Acute (3) UTI (urinary tract infection) Status: Acute Comment Review of Relevant I have reviewed the following items eusebio (where applicable) has been applied. Justifications for Admission Other Justification GAY KAUFFMAN MD Aug 16, 2021 17:59
[2021-08-16 19:00] VITALS: BP 100/49
[2021-08-16] MEDS: TAMSULOSIN 0.4 MG CAP.ER.24H. PO SCH (20:27)
[2021-08-16] MEDS: MIRTAZAPINE 15 MG TABLET PO SCH (20:27)
[2021-08-16 23:00] VITALS: BP 98/48
[2021-08-17 03:00] VITALS: BP 103/53
[2021-08-17 07:00] VITALS: BP 106/59
--- NOTE | 2021-08-17 07:41 | PDOC ---
[employer] PROGRESS NOTE Date of Service DOS: DATE: 08/17/21 TIME: 07:36 Chief Complaint Chief Complaint Acute metabolic and infectious encephalopathy Acute cystitis, - ESBL UTI Mechanical fall History of depression History of hypertension History of arthritis Continue empiric IV antibiotics Continue PT OT modalities Disposition: Return to [facility] after completing course of antibiotics History of Present Illness History of Present Illness 81 male who resides at one of the nursing homes locally. Basically, he has been developing some mental status change, dysuria and then he had a mechanical fall. While here in the ER, he is noted to have a UTI with moderate leukocyte esterase and greater than 40 white cells. Admitted on IV rocephin 08/12: No acute events overnight. Patient seen examined bedside. Resting comfortably without any distress. No concerns nursing. 08/13: No acute events overnight. Patient pleasantly confused and just wants his pajama pants on. No concerns nursing at this time. Lost IV acces, given PO cefdinir 08/14: No overnight events. Urine returned E. coli ESBL. Duckworth catheter still in place. Discussed will need to get several doses of IV meropenem and then p.o. fosfomycin prior to discharge back to SNF. Will obtain CT abdomen pelvis to rule out obstructive uropathy. 08/15: No OE. Refused IV insertion. Given IM invanz. Discussed with ID to give an additional dose of IM Invanz today and fosfomycin 3 doses every other day to complete his course for ESBL UTI. Then to discharge home with home health. 08/16: No complaints today. We will continue IM Invanz. Insurance pending, may provide fosfomycin 3 doses every other day to complete treatment for ESBL UTI. Then likely home with home health. Discussed with RN. 08/17: No acute events overnight. Receiving IM Invanz. Cultures showing sensitivities to Augmentin. Plan to discharge patient on Augmentin 875 twice daily for 14 days to complete treatment for ESBL E.coli UTI. Home with home health today. Greater than 30 minutes spent managing the discharge of this patient. Vitals/I&O Vitals/I&O: Vital Signs Date Time Temp Pulse Resp B/P (MAP) Pulse Ox O2 Delivery O2 Flow Rate FiO2 08/17/21 03:00 98.1 67 16 103/53 (70) 93 Room Air 98.1 I & O 08/16/21 08/16/21 08/17/21 15:00 23:00 07:00 Intake Total 240 ml 120 ml Output Total 400 ml 250 ml Balance -400 ml 240 ml -130 ml Physical Exam Physical Exam: PHYSICAL EXAMINATION: GENERAL: Alert and oriented gentleman who is very forgetful, not in distress. VITAL SIGNS: Stable, afebrile. HEENT: NAD. NECK: Supple, no JVP, no lymphadenopathy. LUNGS: Clear. HEART: S1, S2, regular. ABDOMEN: Soft, nontender, no organomegaly. EXTREMITIES: No edema, cyanosis. SKIN: Unremarkable. NEUROLOGIC: The patient is alert, awake, and appropriate. Does answer simple questions, but the memory is very poor. No focal deficit. General: Alert Heart: Regular rate Lungs: Clear, Wheezing, Crackles Abdomen: No tenderness Extremities: No clubbing Skin: No rashes, No breakdown Assessment and Plan Assessmemt and Plan Problems Medical Problems: (1) AMS (altered mental status) Status: Acute (2) Noncompliance with medication regimen Status: Acute (3) UTI (urinary tract infection) Status: Acute Comment Review of Relevant I have reviewed the following items eusebio (where applicable) has been applied. Justifications for Admission Other Justification GAY KAUFFMAN MD Aug 17, 2021 07:41
--- NOTE | 2021-08-17 08:19 | PDOC ---
Infectious Disease Note Subjective Subjective Patient is feeling good says ROS ROS No nausea vomiting diarrhea chest pain shortness of breath Vital Sign Vital Signs Vital Signs Date Time Temp Pulse Resp B/P (MAP) Pulse Ox O2 Delivery O2 Flow Rate FiO2 08/17/21 07:00 97.4 78 17 106/59 (75) 94 Room Air 97.4 Physical Exam PHYSICAL EXAM PHYSICAL EXAMINATION: GENERAL: Alert and oriented gentleman who is very forgetful, not in distress. VITAL SIGNS: Stable, afebrile. HEENT: NAD. NECK: Supple, no JVP, no lymphadenopathy. LUNGS: Clear. HEART: S1, S2, regular. ABDOMEN: Soft, nontender, no organomegaly. EXTREMITIES: No edema, cyanosis. SKIN: Unremarkable. NEUROLOGIC: The patient is alert, awake, and appropriate. Does answer simple questions, but the memory is very poor. No focal deficit. Labs Micro Urine with ESBL E. coli Objective Assessment IMPRESSION: 1. Catheter associated urinary tract infection with Extended spectrum beta-lactamases producing Escherichia coli.///Possible colonization 2. Status post fall. 3. Encephalopathy. 4. Dementia. 5. 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 Plan Plan of Care Patient is getting Invanz IM Insurance is not approving fosfomycin We will give today's dose of Invanz and then discharge patient on Augmentin p.o. Change Duckworth catheter if is not done for this admission LUIS CABAN MD Aug 17, 2021 08:19
[2021-08-17] MEDS: OXYBUTYNIN CHLORIDE 5 MG TABLET PO SCH (09:12)
[2021-08-17] MEDS: MULTIVITAMIN with MINERAL TABLET. PO SCH (09:12)
[2021-08-17] MEDS: DOCUSATE SODIUM 100 MG CAPSULE. PO SCH (09:12)
[2021-08-17] MEDS: LACTOBACILLUS RHAMNOSUS GG 1 CAPSULE. PO SCH (09:12)
[2021-08-17 11:00] VITALS: BP 102/52
--- NOTE | 2021-08-17 11:27 | NUR ---
SS following up with discharge planning. SS reviewed pt chart and discussed with pt RN. Pt is currently on room air. Pt being changed to PO Augmentin per ID. Pt is Assisted Living resident from [facility], ; fax [phone]. Probable discharge back to facility with home healthcare today. Pt was previously on services with [facility], ; fax [phone]. SS phoned and faxed clinical updates to [facility] and referral to [facility]. Packet placed on chart. SS will continue to follow for discharge planning. Addendum: 08/17/21 at 1524 by MANUEL ANGLIN Discharge orders received and phoned and faxed to [facility] and [facility]. Pt will discharge today and return to [facility] between 1600 and 1630 via [facility]. Pt's RN notified.
--- NOTE | 2021-08-17 13:07 | PDOC3 ---
Discharge Summary Visit Information Date of Admission: Aug 11, 2021 Date of Discharge: Aug 17, 2021 Final Diagnosis Problems Medical Problems: (1) AMS (altered mental status) Status: Acute (2) Noncompliance with medication regimen Status: Acute (3) UTI (urinary tract infection) Status: Acute Brief Hospital Course Allergies Allergies Coded Allergies Type Severity Reaction Last Updated Verified I S O L A T I O N *CONTACT* Allergy Unknown 08/14/21 Yes No Known Medication Allergies Allergy Unknown 08/14/21 Yes Vital Signs Vital Signs Date Time Temp Pulse Resp B/P (MAP) Pulse Ox O2 Delivery O2 Flow Rate FiO2 08/17/21 11:00 97.5 72 17 102/52 (69) 96 97.5 08/17/21 08:15 Room Air Brief Hospital Course 81 male who resides at one of the nursing homes locally. Basically, he has been developing some mental status change, dysuria and then he had a mechanical fall. While here in the ER, he is noted to have a UTI with moderate leukocyte esterase and greater than 40 white cells. Admitted on IV rocephin 08/12: No acute events overnight. Patient seen examined bedside. Resting comfortably without any distress. No concerns nursing. 08/13: No acute events overnight. Patient pleasantly confused and just wants his pajama pants on. No concerns nursing at this time. Lost IV acces, given PO cefdinir 08/14: No overnight events. Urine returned E. coli ESBL. Duckworth catheter still in place. Discussed will need to get several doses of IV meropenem and then p.o. fosfomycin prior to discharge back to SNF. Will obtain CT abdomen pelvis to rule out obstructive uropathy. 08/15: No OE. Refused IV insertion. Given IM invanz. Discussed with ID to give an additional dose of IM Invanz today and fosfomycin 3 doses every other day to complete his course for ESBL UTI. Then to discharge home with home health. 08/16: No complaints today. We will continue IM Invanz. Insurance pending, may provide fosfomycin 3 doses every other day to complete treatment for ESBL UTI. Then likely home with home health. Discussed with RN. 08/17: No acute events overnight. Receiving IM Invanz. Cultures showing sensitivities to Augmentin. Plan to discharge patient on Augmentin 875 twice daily for 14 days to complete treatment for ESBL E.coli UTI. Home with home health today. Greater than 30 minutes spent managing the discharge of this patient. Discharge Information Condition at Discharge: Improved Disposition/Orders: D/C to Home w/ HH Scheduled Docusate Sodium (Docusate Sodium) 100 Mg Capsule, 2 CAP PO BID for constipation for 7 Days, #28 Ref 0 (Reported) Entered as Reported by: MAURICIO DAVE on 08/11/211849 Last Taken: Unknown Dose on 08/11/21 Last Action: Continued on 08/14/21 1 030 by RAVINDER WIN MD Fosfomycin Tromethamine (Fosfomycin Tromethamine) 3 Gm Packet, 3 GM PO QODAY for ESBL UTI for 3 Days, #3 Prescribed by: RAVINDER WIN MD on 08/15/21 0950 Ibuprofen (Ibuprofen) 400 Mg Tablet, 400 MG PO TID for CHRONIC PAIN , (Reported) Entered as Reported by: MAURICIO DAVE on 08/11/211849 Last Taken: Unknown Dose on 08/11/21 Last Action: New Order on 08/11/211849 by MAURICIO DAVE Melatonin (Melatonin) 3 Mg Tablet, 2 TAB PO QHS for INSOMNIA, #30 Ref 2 (Reported) Entered as Reported by: MAURICIO DAVE on 08/11/211849 Last Taken: Unknown Dose on 08/10/21 Last Action: Converted on 08/14/211029 by RAVINDER WIN MD Mirtazapine (Mirtazapine) 15 Mg Tablet, 1 TAB PO QHS for DEPRESSION, #30 Ref 3 (Reported) Entered as Reported by: MAURICIO DAVE on 08/11/211849 Last Taken: Unknown Dose on 08/10/21 Last Action: Continued on 08/14/211029 by RAVINDER WIN MD Multivitamin (Multi-Vitamin Daily) 1 Each Tablet, 1 TAB PO DAILY for SUPPLEMENT for 30 Days, #30 Ref 0 Prescribed by: SIMEON ANN MD on 03/09/21 1232 Last Action: Converted on 08/14/211029 by RAVINDER WIN MD Tamsulosin Hcl (Flomax) 0.4 Mg Cap.er.24h, 1 CAP PO HS for BPH, #30 Ref 11 (Reported) Entered as Reported by: MAURICIO DAVE on 08/11/211849 Last Taken: Unknown Dose on 08/10/21 Last Action: Continued on 08/14/211029 by RAVINDER WIN MD Tolterodine Tartrate (Detrol La) 2 Mg Cap.er.24h, 1 CAP PO DAILY for BLADDER SPASMS, #30 Ref 2 (Reported) Entered as Reported by: MAURICIO DAVE on 08/11/211849 Last Taken: Unknown Dose on 08/11/21 Last Action: Converted on 08/14/211029 by RAVINDER WIN MD Justicifation of Admission Dx: Justifications for Admission: Justification of Admission Dx: Yes Sepsis: Failure of Out Pt Tx GAY KAUFFMAN MD Aug 17, 2021 13:07
[2021-08-17] MEDS ORDERED: AMOX1TAB61 PO (13:10)
--- NOTE | 2021-08-17 13:11 | SNU/HH DC ---
DISCHARGE WITH HOME HEALTH DISCHARGE INFORMATION: Discharge Date: Aug 17, 2021 Final Diagnosis: Problems Medical Problems: (1) AMS (altered mental status) Status: Acute (2) Noncompliance with medication regimen Status: Acute (3) UTI (urinary tract infection) Status: Acute Condition on Discharge: Stable CODE STATUS: Code Status: DNR/DNI HOME HEALTH: Face to Face: I certify this patient is under my care and that I, or a nurse practitioner or physician's animal care assistant working with me, had a face to face encounter that meets the physician face to face encounter requirements with this patient on 08/17/2021. RN For Eval/Treatment: Yes Physical Therapy For: Evalulation/Treatment Occupational Therapy For: Evaluation/Treatment Pt Meets Homebound Status: Poor coordination w/ amb., Psychological condition POST DISCHARGE ORDERS: Activity Instructions for Disc: Activity as tolerated Weight Bearing Status after Di: As tolerated DIET AFTER DISCHARGE: Cardiac Wound/Incision Care: No wound care needed CHECKS AFTER DISCHARGE: Checks after discharge: Check blood press - daily FOLLOW-UP: DC TO SNF LABS: Urology - Dr. Jo - urinary retention TREATMENT/EQUIPMENT ORDERS: Adaptive Equipment Issued: Commode, Front wheeled walker, Long handled shoe horn, Raised toilet seat w/arms CERTIFICATION STATEMENT: Certification Statement: Certification Statement: Based on the above finding, I certify that this patient is confined to the home and needs intermittent jail care, physical therapy and/or speech therapy, or continues to need occupational therapy.~ This patient is under my care, and I have initiated the establishment of the plan of care.~ This patient will be followed by myself or a community physician who will periodically review the plan of care. Home Meds Active Scripts Amoxicillin/Potassium Clav (AUGMENTIN 875-125 TABLET) 1 Each Tablet, 1 TAB PO BID for UTI for 14 Days, #28 TAB 0 Refills Prov:GAY KAUFFMAN MD 08/17/21 Multivitamin (MULTI-VITAMIN DAILY) 1 Each Tablet, 1 TAB PO DAILY for SUPPLEMENT for 30 Days, #30 TAB 0 Refills Prov:SIMEON ANN MD 03/09/21 Reported Medications Tolterodine Tartrate (DETROL LA) 2 Mg Cap.er.24h, 1 CAP PO DAILY for BLADDER SPASMS, #30 CAP 2 Refills 08/11/21 Tamsulosin Hcl (FLOMAX) 0.4 Mg Cap.er.24h, 1 CAP PO HS for BPH, #30 CAP 11 Refills 08/11/21 Mirtazapine (MIRTAZAPINE) 15 Mg Tablet, 1 TAB PO QHS for DEPRESSION, #30 TAB 3 Refills 08/11/21 Melatonin (MELATONIN) 3 Mg Tablet, 2 TAB PO QHS for INSOMNIA, #30 TAB 2 Refills 08/11/21 Ibuprofen (IBUPROFEN) 400 Mg Tablet, 400 MG PO TID for CHRONIC PAIN , TAB 08/11/21 Docusate Sodium (DOCUSATE SODIUM) 100 Mg Capsule, 2 CAP PO BID for constipation for 7 Days, #28 CAP 0 Refills 08/11/21 GAY KAUFFMAN MD Aug 17, 2021 13:11
[2021-08-17 15:00] VITALS: BP 108/47
--- NOTE | 2021-08-17 15:32 | NUR ---
pt is being discharged back to [facility] with home health care. pt is to be picked up between [phone] [facility] and taken home. Have tried to call the nurses desk at facility to give report but only got voicemail. not sure I will be able to give report before brain picker. Juvenal Vogel RN
--- NOTE | 2021-08-17 16:47 | NUR ---
pt was picked up at 2862. Juvenal Vogel RN
== END 2021-08-17 14:42 | disposition home health service (06) | DRG 698 ==
LOC: ER 12:21 → 5 SOUTH 15:28
PROVIDERS: ADMIT Internal Medicine; ATTEND Internal Medicine
DX: T83.511A Infection and inflammatory reaction due to indwelling urethral catheter, initial encounter (principal); G93.41 Metabolic encephalopathy; N30.00 Acute cystitis without hematuria; Z16.12 Extended spectrum beta lactamase (ESBL) resistance; B96.20 Unspecified Escherichia coli [E. coli] as the cause of diseases classified elsewhere; M19.90 Unspecified osteoarthritis, unspecified site; Y83.8 Other surgical procedures as the cause of abnormal reaction of the patient, or of later complication, without mention of misadventure at the time of the procedure; F03.90 Unspecified dementia, unspecified severity, without behavioral disturbance, psychotic disturbance, mood disturbance, and anxiety; F32.A Depression, unspecified; G47.00 Insomnia, unspecified; G89.29 Other chronic pain; I10 Essential (primary) hypertension; Z83.3 Family history of diabetes mellitus; Z87.891 Personal history of nicotine dependence; Z91.14 Patient's other noncompliance with medication regimen; Y92.89 Other specified places as the place of occurrence of the external cause
CPT/HCPCS: 36415; 51702; 70450; 71045; 72125; 74176; 80048; 80053; 81001; 82550; 83605; 85025; 87040; 87077; 87086; 87186; 93005; 96360; 96361; A4314; J0696; J1335; J7030; U0003; U0005; 97530-GP; 99285-25; G0378

== ENCOUNTER 2021-09-17 03:38 | Inpatient (IN) | payer OTHER ==
[~2021-09-17] VITALS: Ht 170.2 cm; Wt 51.9 kg
[~2021-09-17 03:38] MED LIST changes: +AMOX1TAB61 PO; +DOCU100C28 PO; +FOSF3PAC4 PO; +IBUP-1027 PO; +MELA3TAB4 PO; +MIRT-7 PO; +TAMS0.4C97 PO; +TOLT2CAP PO
--- NOTE | 2021-09-17 03:55 | PHYS DOC ---
Past Medical History Past Medical History: Arthritis, Depression, Hypertension Past Surgical History: No Surgical History Smoking Status: Never Smoker Alcohol Use: None Drug Use: None General Adult EDM: Chief Complaint: BLOOD IN URINE HPI: HPI: Patient is a 81 year old male with history of chronic indwelling Duckworth, HTN, arthritis who presents with gross blood in his urinary catheter starting at 8 PM last night Staff at his long-term care facility states that he seems slightly off of his baseline starting at 10 PM last night. Patient denies any pain. Denies any other symptoms. Is able to state his name, month, and location. Review of Systems: Review of Systems: Constitutional: Denies fever or chills. [] HENT: Denies nasal congestion or sore throat. [] Respiratory: Denies cough or shortness of breath. [] Cardiovascular: Denies chest pain GI: Denies abdominal pain, nausea, vomiting, bloody stools or diarrhea. [] : Denies dysuria. Reports dysuria.[] Musculoskeletal: Denies back pain or joint pain. [] Neurologic: Denies headache, focal weakness or sensory changes. [] Lymphatic: Denies swollen glands. [] Heart Score: C/O Chest Pain: No Risk Factors: Risk Factors: DM, Current or recent (<one month) smoker, HTN, HLP, family history of CAD, obesity. Risk Scores: Score 0 - 3: 2.5% MACE over next 6 weeks - Discharge Home Score 4 - 6: 20.3% MACE over next 6 weeks - Admit for Clinical Observation Score 7 - 10: 72.7% MACE over next 6 weeks - Early Invasive Strategies Allergies: Allergies: Allergies Coded Allergies Type Severity Reaction Last Updated Verified I S O L A T I O N *CONTACT* Allergy Unknown 08/14/21 Yes No Known Medication Allergies Allergy Unknown 08/14/21 Yes Physical Exam: PE: Inserted Constitutional: Frail elderly gentleman in no acute distress. HENT: Normocephalic, atraumatic, bilateral external ears normal, oropharynx moist, no oral exudates, nose normal. [] Eyes: PERRLA, EOMI, conjunctiva normal, no discharge. [] Neck: Normal range of motion, no tenderness, supple, no stridor. [] Cardiovascular:Heart rate regular rhythm, no murmur [] Lungs & Thorax: Bilateral breath sounds clear to auscultation [] Abdomen: Suprapubic area tender, and bladder palpable in the low pelvis. : Duckworth catheter in urethra. Is not secured at the leg. There was no bleeding around the catheter insertion site. Catheter bag filled with brown/bloody urine. Skin: Warm, dry, no erythema, no rash. [] Back: No tenderness, no CVA tenderness. [] Extremities: No tenderness, no cyanosis, no clubbing, ROM intact, no edema. [] Neurologic: Alert and oriented X 3, normal motor function, normal sensory function, no focal deficits noted. [] Psychologic: Affect normal, judgement normal, mood normal. [] EKG: EKG: [] Radiology/Procedures: Radiology/Procedures: [] Impression: [facility] [address] [place] [address] IMAGING REPORT Signed PATIENT: HENRY SOUZA ACCOUNT: [id number] : 1940 LOCATION: ER AGE: 81 SEX: M EXAM STATUS: REG ER ORD. PHYSICIAN: EL VICENTE MD REASON: leukocytosis, limited history PROCEDURE: CHEST AP ONLY XR CHEST 1V Clinical History: Reason: leukocytosis, limited history / Spl. Instructions: / History: Technique: AP view of the chest was obtained at 09/17/2021 4:48 AM. Comparison: August 11, 2021. Findings: The cardiomediastinal silhouette is normal. The pulmonary vasculature is normal. There is perihilar linear opacities in the right there is linear opacities lung bases and blunting of the right costophrenic angle. Impression: Mild right effusion and bilateral pulmonary infiltrates could be CHF or atypical pneumonia appears mildly worse. Electronically signed by: Maribel Montoya III, MD (09/17/2021 5:17 AM) [facility] DICTATED and SIGNED BY: MARIBEL MONTOYA III, MD DATE: 09/17/21 [id number] 0 Course & Med Decision Making: Course & Med Decision Making Pertinent Labs and Imaging studies reviewed. (See chart for details) Patient 81-year-old male coming from a long-term nursing facility with gross hematuria in his catheter. Catheter is in place, without blood around the catheter site, but is not secured. Question whether it may have been pulled causing the hematuria. His bladder feels distended and he is tender in the suprapubic area concerning for obstruction. Will attempt to replace. Neuro exam is non-focal and he is alert, oriented x3. No trauma, do not feel CT imaging of head is warranted. Will check bmp, cbc, ck. 0408 Duckworth exchange uneventfully. Draining blood-tinged urine, slowly clearing. Does not seem to be having any large clots to obstruct the catheter. UA does appear infected and his white blood cell count is slightly elevated at 14. CXR shows ? of pulm edema vs atypical pneumonia. His vital signs remained stable with a heart rate in the 80s. Chart review shows last urine culture was ESBL e coli. Will give meropenem and doxcyline for treatment of UTI and pneumonia. Will discuss admission with hospitalist. [id number] Disclaimer: Ashley Disclaimer: This electronic medical record was generated, in whole or in part, using a voice recognition dictation system. Departure Departure Impression: Primary Impression: UTI (urinary tract infection) Additional Impressions: Gross hematuria Catheter (urine) change required Atypical pneumonia Disposition: HOME / SELF CARE / HOMELESS Admitting Physician: JUSTINO Arias) Condition: STABLE Referrals: ALEXANDER BUSTAMANTE DO (PCP) EL VICENTE MD Sep 17, 2021 03:55
[2021-09-17 04:00] LABS: BASO # 0.1 x10^3/uL (0.0-0.2); BASO % 0 % (0-3); EOS # 0.2 x10^3/uL (0.0-0.7); EOS % 2 % (0-3); HEMATOCRIT 41.3 % (39.0-53.0); HEMOGLOBIN 13.6 g/dL (13.0-17.5); LYMPH % 7 % (24-48); MEAN CORPUSCULAR HEMOGLOBIN 30 pg (25-35); MEAN CORPUSCULAR HGB CONC 33 g/dL (31-37); MEAN CORPUSCULAR VOLUME 90 fL (79-100); MONO # 0.9 x10^3/uL (0.0-1.1); MONO % 6 % (0-9); NEUT # 12.7 x10^3/uL (1.8-7.7); NEUT % 86 % (31-73); PLATELET COUNT 303 x10^3/uL (140-400); RED BLOOD COUNT 4.61 x10^6/uL (4.30-5.70); RED CELL DISTRIBUTION WIDTH 14.9 % (11.5-14.5); WHITE BLOOD COUNT 14.8 x10^3/uL (4.0-11.0)
[2021-09-17 04:17] LABS: CALCIUM 8.9 mg/dL (8.5-10.1); CREATININE 1.2 mg/dL (0.7-1.3); GFR 57.8
[2021-09-17 04:24] LABS: ALBUMIN/GLOBULIN RATIO 0.8 (1.0-1.7); TOTAL BILIRUBIN 0.9 mg/dL (0.2-1.0); TOTAL PROTEIN 6.8 g/dL (6.4-8.2)
[2021-09-17 04:27] LABS: BILIRUBIN,URINE SMALL (NEG); CLARITY,URINE CLOUDY; COLOR,URINE RED; NITRITE,URINE POSITIVE (NEG); PROTEIN,URINE 100 mg/dL (NEG-TRACE)
[2021-09-17 04:35] LABS: BACTERIA,URINE MANY /HPF (0-FEW); RBC,URINE 20-40 /HPF (0-2); WBC,URINE TNTC /HPF (0-4)
[2021-09-17 04:48] LABS: % EOS 3 % (0-5); % LYMPHS 8 % (24-48); % MONOS 5 % (0-10); % SEGS 84 % (35-66); PLT ESTIMATE ADEQUATE (ADEQUATE)
--- NOTE | 2021-09-17 05:20 | RAD ---
XR CHEST 1V Clinical History: Reason: leukocytosis, limited history / Spl. Instructions: / History: Technique: AP view of the chest was obtained at 09/17/2021 4:48 AM. Comparison: August 11, 2021. Findings: The cardiomediastinal silhouette is normal. The pulmonary vasculature is normal. There is perihilar l inear opacities in the right there is linear opacities lung bases and blunting of the right costophre cody angle. Impression: Mild right effusion and bilateral pulmonary infiltrates could be CHF or atypical pneumonia appears mi ldly worse. Electronically signed by: Amauri Carpenter III, MD (09/17/2021 5:17 AM) [facility]
[2021-09-17] MEDS ORDERED: AMOX1TAB61 PO (05:40)
[2021-09-17] MEDS ORDERED: DOXY100C3 PO (05:40)
[2021-09-17] MEDS ORDERED: MEROPENEM 1 GM in IV NORMAL SALINE 100ML 100 ML IV SCH (06:00)
[2021-09-17] MEDS ORDERED: DOXYCYCLINE HYCLATE 100 MG TABLET PO ONE (06:00)
[2021-09-17] MEDS: MEROPENEM 500 MG in IV NORMAL SALINE 50ML 50 ML IV SCH ×3 (06:04→22:30)
[2021-09-17 08:17] VITALS: BP 113/63
--- NOTE | 2021-09-17 08:51 | PDOC1 ---
History and Physical Date of Service: DOS: DATE: 09/17/21 TIME: 08:39 Chief Complaint: Chief Complain: Hematuria History of Present Illness: HPI: History obtained from discussion with the ED physician 81 year old male with history of chronic indwelling Duckworth, HTN, arthritis who presents with gross blood in his urinary catheter starting at 8 PM last night Staff at his long-term care facility states that he seems slightly off of his baseline starting at 10 PM last night. Patient denies any pain. Denies any other symptoms. Is able to state his name, month, and location. Past Medical/Surgical History: PMH/PSH: Past Medical History: Arthritis, Depression, Hypertension Past Surgical History: No Surgical History Allergies: Allergies: Coded Allergies: I S O L A T I O N *CONTACT* (Verified Allergy, Unknown, 08/14/21) ESBL No Known Medication Allergies (Verified Allergy, Unknown, 08/14/21) Family History: Family History: Reviewed the relevant findings Social History: Social History: Smoking Status: Never Smoker Alcohol Use: None Drug Use: None Current Medications: Current Medications Current Medications Meropenem 1 gm/ Sodium Chloride 100 ml @ 200 mls/hr Q8HRS IV ; Start 09/17/21 at 06:00; Status UNV Doxycycline Hyclate (Vibra-Tab) 100 mg 1X ONCE PO Last administered on 09/17/21at 06:11; Start 09/17/21 at 06:00; Stop 09/17/21 at 06:01; Status DC Meropenem 500 mg/ Sodium Chloride 50 ml @ 100 mls/hr Q8HRS IV Last administered on 09/17/21at 06:04; Start 09/17/21 at 06:00 Lactobacillus Rhamnosus (Culturelle) 1 cap BID PO ; Start 09/17/21 at 21:00 Active Scripts Active Reported Detrol La (Tolterodine Tartrate) 2 Mg Cap.er.24h 1 Cap PO DAILY Flomax (Tamsulosin Hcl) 0.4 Mg Cap.er.24h 1 Cap PO HS Mirtazapine 15 Mg Tablet 1 Tab PO QHS Melatonin 3 Mg Tablet 2 Tab PO QHS Ibuprofen 400 Mg Tablet 400 Mg PO TID Docusate Sodium 100 Mg Capsule 2 Cap PO BID 7 Days ROS: Review of Systems Review of System REVIEW OF SYSTEMS: GENERAL: Denies weakness SKIN: No bruising, hair changes or rashes. EYES: No blurred, double or loss of vision. NOSE AND THROAT: No history of nosebleeds, hoarseness or sore throat. HEART: No history of palpitations, chest pain or shortness of breath on exertion. LUNGS: Denies cough, hemoptysis, wheezing or shortness of breath. GASTROINTESTINAL: Denies changes in appetite, nausea, vomiting, diarrhea or constipation. GENITOURINARY: No history of frequency, urgency, hesitancy or nocturia. NEUROLOGIC: Denies history of numbness, tingling, or tremor. PSYCHIATRIC: No history of panic, anxiety or depression. ENDOCRINE: No history of heat or cold intolerance, polyuria or polydipsia. EXTREMITIES: Denies joint pain, pain on walking or stiffness. Physical Exam: Vital Signs: Vital Signs Date Time Temp Pulse Resp B/P (MAP) Pulse Ox O2 Delivery O2 Flow Rate FiO2 09/17/21 08:17 98.3 83 18 113/63 (80) Room Air 98.3 09/17/21 07:24 97 2.0 Physcial Exam: General: Well developed, well nourished, no acute distress, well appearing HEENT: Pupils equally round and reactive to light, EOMI, no discharge, normal conjunctiva Neck: Supple, no nuchal rigidity, no JVD, trachea midline, no tenderness Cardiac: RRR, no murmurs, no gallops, no rubs Chest/Lungs: CTAB, no wheeze, no rhonchi, no crackles Abdomen: soft, non-distended, no guarding, no peritoneal signs, non-tender Back: No tenderness : Catheter bag filled with brown/bloody urine. Extremities: no edema, pulses intact, non-tender,capillary refill <3 sec bilateral upper and lower extremities, Neuro: Alert and oriented x 4, no focal deficits, normal speech Labs: Labs: Laboratory Tests Test 09/17/21 03:54 09/17/21 04:18 09/17/21 05:50 White Blood Count 14.8 x10^3/uL (4.0-11.0) Red Blood Count 4.61 x10^6/uL (4.30-5.70) Hemoglobin 13.6 g/dL (13.0-17.5) Hematocrit 41.3 % (39.0-53.0) Mean Corpuscular Volume 90 fL (79-100) Mean Corpuscular Hemoglobin 30 pg (25-35) Mean Corpuscular Hemoglobin Concent 33 g/dL (31-37) Red Cell Distribution Width 14.9 % (11.5-14.5) Platelet Count 303 x10^3/uL (140-400) Neutrophils (%) (Auto) 86 % (31-73) Lymphocytes (%) (Auto) 7 % (24-48) Monocytes (%) (Auto) 6 % (0-9) Eosinophils (%) (Auto) 2 % (0-3) Basophils (%) (Auto) 0 % (0-3) Neutrophils # (Auto) 12.7 x10^3/uL (1.8-7.7) Lymphocytes # (Auto) 1.0 x10^3/uL (1.0-4.8) Monocytes # (Auto) 0.9 x10^3/uL (0.0-1.1) Eosinophils # (Auto) 0.2 x10^3/uL (0.0-0.7) Basophils # (Auto) 0.1 x10^3/uL (0.0-0.2) Segmented Neutrophils % 84 % (35-66) Lymphocytes % 8 % (24-48) Monocytes % 5 % (0-10) Eosinophils % 3 % (0-5) Platelet Estimate Adequate (ADEQUATE) Sodium Level 141 mmol/L (136-145) Potassium Level 4.0 mmol/L (3.5-5.1) Chloride Level 108 mmol/L (98-107) Carbon Dioxide Level 27 mmol/L (21-32) Anion Gap 6 (6-14) Blood Urea Nitrogen 23 mg/dL (8-26) Creatinine 1.2 mg/dL (0.7-1.3) Estimated GFR (Cockcroft-Gault) 57.8 BUN/Creatinine Ratio 19 (6-20) Glucose Level 133 mg/dL (70-99) Calcium Level 8.9 mg/dL (8.5-10.1) Total Bilirubin 0.9 mg/dL (0.2-1.0) Aspartate Amino Transf (AST/SGOT) 19 U/L (15-37) Alanine Aminotransferase (ALT/SGPT) 21 U/L (16-63) Alkaline Phosphatase 123 U/L (46-116) Creatine Kinase 42 U/L (39-308) Total Protein 6.8 g/dL (6.4-8.2) Albumin 3.0 g/dL (3.4-5.0) Albumin/Globulin Ratio 0.8 (1.0-1.7) Urine Collection Type Unknown Urine Color Red Urine Clarity Cloudy Urine pH 7.0 (<5.0-8.0) Urine Specific [place] 1.020 (1.000-1.030) Urine Protein 100 mg/dL (NEG-TRACE) Urine Glucose (UA) Negative mg/dL (NEG) Urine Ketones (Stick) Trace mg/dL (NEG) Urine Blood Large (NEG) Urine Nitrite Positive (NEG) Urine Bilirubin Small (NEG) Urine Urobilinogen Dipstick 1.0 mg/dL (0.2 mg/dL) Urine Leukocyte Esterase Large (NEG) Urine RBC 20-40 /HPF (0-2) Urine WBC Tntc /HPF (0-4) Urine Squamous Epithelial Cells Occ /LPF Urine Bacteria Many /HPF (0-FEW) Urine Mucus Mod /LPF SARS-CoV-2 Antigen (Rapid) Negative (NEGATIVE) Laboratory Tests Test 09/17/21 03:54 09/17/21 04:18 09/17/21 05:50 White Blood Count 14.8 x10^3/uL (4.0-11.0) Red Blood Count 4.61 x10^6/uL (4.30-5.70) Hemoglobin 13.6 g/dL (13.0-17.5) Hematocrit 41.3 % (39.0-53.0) Mean Corpuscular Volume 90 fL (79-100) Mean Corpuscular Hemoglobin 30 pg (25-35) Mean Corpuscular Hemoglobin Concent 33 g/dL (31-37) Red Cell Distribution Width 14.9 % (11.5-14.5) Platelet Count 303 x10^3/uL (140-400) Neutrophils (%) (Auto) 86 % (31-73) Lymphocytes (%) (Auto) 7 % (24-48) Monocytes (%) (Auto) 6 % (0-9) Eosinophils (%) (Auto) 2 % (0-3) Basophils (%) (Auto) 0 % (0-3) Neutrophils # (Auto) 12.7 x10^3/uL (1.8-7.7) Lymphocytes # (Auto) 1.0 x10^3/uL (1.0-4.8) Monocytes # (Auto) 0.9 x10^3/uL (0.0-1.1) Eosinophils # (Auto) 0.2 x10^3/uL (0.0-0.7) Basophils # (Auto) 0.1 x10^3/uL (0.0-0.2) Segmented Neutrophils % 84 % (35-66) Lymphocytes % 8 % (24-48) Monocytes % 5 % (0-10) Eosinophils % 3 % (0-5) Platelet Estimate Adequate (ADEQUATE) Sodium Level 141 mmol/L (136-145) Potassium Level 4.0 mmol/L (3.5-5.1) Chloride Level 108 mmol/L (98-107) Carbon Dioxide Level 27 mmol/L (21-32) Anion Gap 6 (6-14) Blood Urea Nitrogen 23 mg/dL (8-26) Creatinine 1.2 mg/dL (0.7-1.3) Estimated GFR (Cockcroft-Gault) 57.8 BUN/Creatinine Ratio 19 (6-20) Glucose Level 133 mg/dL (70-99) Calcium Level 8.9 mg/dL (8.5-10.1) Total Bilirubin 0.9 mg/dL (0.2-1.0) Aspartate Amino Transf (AST/SGOT) 19 U/L (15-37) Alanine Aminotransferase (ALT/SGPT) 21 U/L (16-63) Alkaline Phosphatase 123 U/L (46-116) Creatine Kinase 42 U/L (39-308) Total Protein 6.8 g/dL (6.4-8.2) Albumin 3.0 g/dL (3.4-5.0) Albumin/Globulin Ratio 0.8 (1.0-1.7) Urine Collection Type Unknown Urine Color Red Urine Clarity Cloudy Urine pH 7.0 (<5.0-8.0) Urine Specific [place] 1.020 (1.000-1.030) Urine Protein 100 mg/dL (NEG-TRACE) Urine Glucose (UA) Negative mg/dL (NEG) Urine Ketones (Stick) Trace mg/dL (NEG) Urine Blood Large (NEG) Urine Nitrite Positive (NEG) Urine Bilirubin Small (NEG) Urine Urobilinogen Dipstick 1.0 mg/dL (0.2 mg/dL) Urine Leukocyte Esterase Large (NEG) Urine RBC 20-40 /HPF (0-2) Urine WBC Tntc /HPF (0-4) Urine Squamous Epithelial Cells Occ /LPF Urine Bacteria Many /HPF (0-FEW) Urine Mucus Mod /LPF SARS-CoV-2 Antigen (Rapid) Negative (NEGATIVE) Images: Images PROCEDURE: CHEST AP ONLY XR CHEST 1V Clinical History: Reason: leukocytosis, limited history / Spl. Instructions: / History: Technique: AP view of the chest was obtained at 09/17/2021 4:48 AM. Comparison: August 11, 2021. Findings: The cardiomediastinal silhouette is normal. The pulmonary vasculature is normal. There is perihilar linear opacities in the right there is linear opacities lung bases and blunting of the right costophrenic angle. Impression: Mild right effusion and bilateral pulmonary infiltrates could be CHF or atypical pneumonia appears mildly worse. Assessment/Plan Assessment/Plan Hematuria Acute UTI Atypical pneumonia, possible gram-negative organisms Admit to hospitalist service for further management Continue empiric IV antibiotics Will give meropenem and doxcyline for treatment of UTI and pneumonia. Will discuss admission with hospitalist Hold for hematuria for DVT prophylaxis ADA diet CODE STATUS DNR Discussed with RN and SW Disposition inpatient management as above DPOA: Komal Wood, daughter In addition to my E/M visit, advance care planning done with A total time of 20 minutes was spent from 830 to 850 face to face in discussion regarding the patient's goals of care, CODE STATUS. Justifications for Admission Other Justification ROSIE CHERRY MD Sep 17, 2021 08:51
[2021-09-17] MEDS ORDERED: ZOLPIDEM 5 MG TABLET. PO PRN (09:00)
[2021-09-17] MEDS ORDERED: PROCHLORPERAZINE 10 MG/2 ML VIAL. IV PRN (09:00)
[2021-09-17] MEDS ORDERED: LORazepam 0.5 MG TABLET PO PRN (09:00)
[2021-09-17] MEDS ORDERED: SENNOSIDES 8.6 MG TABLET PO PRN (09:00)
[2021-09-17] MEDS ORDERED: ACETAMINOPHEN 325 MG TABLET. PO PRN (09:00)
[2021-09-17] MEDS ORDERED: ONDANSETRON PF 4 MG/2 ML VIAL. IVP PRN (09:00)
[2021-09-17] MEDS ORDERED: DOCUSATE SODIUM 100 MG CAPSULE. PO PRN (09:00)
[2021-09-17] MEDS ORDERED: DEXTROSE 50% 25 GM / 50ML DISP.SYRIN. IV PRN (09:00)
[2021-09-17 12:21] VITALS: BP 132/62
[2021-09-17 15:00] VITALS: BP 123/66
[2021-09-17 19:30] VITALS: BP 100/44
[2021-09-17] MEDS: LACTOBACILLUS RHAMNOSUS GG 1 CAPSULE. PO SCH (21:34)
[2021-09-17] MEDS: DOXYCYCLINE HYCLATE 100 MG TABLET PO SCH (21:34)
[2021-09-17 23:30] VITALS: BP 98/50
--- NOTE | 2021-09-17 23:50 | NUR ---
Patient's urine output since ~ 1700 only 150CC, paged Dr Estrella. Dr Estrella returned page, notified of patient's overall condition, vital signs and I/O; orders received fro NS 1000CC at 100CC/HR for 2liters. See orders, I/O.
[2021-09-18] MEDS: IV NORMAL SALINE 1000ML BAG 1,000 ML IV SCH ×2 (00:04→11:05)
[2021-09-18 03:30] VITALS: BP 96/49
[2021-09-18 05:08] LABS: BASO % 0 % (0-3); EOS # 0.7 x10^3/uL (0.0-0.7); EOS % 8 % (0-3); HEMATOCRIT 37.2 % (39.0-53.0); HEMOGLOBIN 12.2 g/dL (13.0-17.5); LYMPH # 1.9 x10^3/uL (1.0-4.8); LYMPH % 22 % (24-48); MEAN CORPUSCULAR HEMOGLOBIN 30 pg (25-35); MEAN CORPUSCULAR HGB CONC 33 g/dL (31-37); MEAN CORPUSCULAR VOLUME 90 fL (79-100); MONO # 0.7 x10^3/uL (0.0-1.1); MONO % 8 % (0-9); NEUT # 5.4 x10^3/uL (1.8-7.7); NEUT % 62 % (31-73); PLATELET COUNT 233 x10^3/uL (140-400); RED BLOOD COUNT 4.11 x10^6/uL (4.30-5.70); RED CELL DISTRIBUTION WIDTH 15.3 % (11.5-14.5); WHITE BLOOD COUNT 8.7 x10^3/uL (4.0-11.0)
[2021-09-18 05:25] LABS: CALCIUM 8.1 mg/dL (8.5-10.1); CREATININE 0.9 mg/dL (0.7-1.3); GFR 80.6; PHOSPHORUS 2.8 mg/dL (2.6-4.7); POTASSIUM 3.8 mmol/L (3.5-5.1)
[2021-09-18] MEDS: MEROPENEM 500 MG in IV NORMAL SALINE 50ML 50 ML IV SCH ×3 (06:32→22:25)
[2021-09-18 07:00] VITALS: BP 133/66
[2021-09-18] MEDS: DOXYCYCLINE HYCLATE 100 MG TABLET PO SCH ×2 (09:44→21:05)
[2021-09-18] MEDS: LACTOBACILLUS RHAMNOSUS GG 1 CAPSULE. PO SCH ×2 (09:44→21:05)
--- NOTE | 2021-09-18 10:10 | NUR ---
SS following for discharge planning. SS reviewed pt chart and discussed with pt RN. Pt is from [facility], ; fax [phone]. COVID19 negative. Pt on IV Meropenem and PO Doxycycline. Pt had [facility], ; fax [phone]. SS will continue to follow for discharge planning.
[2021-09-18 11:00] VITALS: BP 111/56
--- NOTE | 2021-09-18 12:38 | PDOC ---
[employer] PROGRESS NOTE Date of Service DOS: DATE: 09/18/21 TIME: 12:36 Chief Complaint Chief Complaint Hematuria Acute UTI, complicated in male Atypical pneumonia, possible gram-negative organisms We will consult infectious disease for timing and length for antibiotic course and coverage for complicated UTI Continue empiric IV antibiotics Will give meropenem and doxcyline for treatment of UTI and pneumonia. Will discuss admission with hospitalist Hold for hematuria for DVT prophylaxis ADA diet CODE STATUS DNR Discussed with RN and SW Disposition inpatient management as above DPOA: Komal Wood, daughter History of Present Illness History of Present Illness 81 year old male with history of chronic indwelling Duckworth, HTN, arthritis who presents with gross blood in his urinary catheter starting at 8 PM last night Staff at his long-term care facility states that he seems slightly off of his baseline starting at 10 PM last night. Patient denies any pain. Denies any other symptoms. Is able to state his name, month, and location. 09/18/2021 No acute events overnight. Patient seen and examined bedside. Catheter clearing up. No gross blood seen. Adequate urine output. Afebrile last 24 hours. White count trending downwards. Continue with IV meropenem and doxycycline for now. Patient's chart, labs, images were reviewed and discussed with RN Vitals/I&O Vitals/I&O: Vital Signs Date Time Temp Pulse Resp B/P (MAP) Pulse Ox O2 Delivery O2 Flow Rate FiO2 09/18/21 11:00 98.6 60 16 111/56 (74) 97 Room Air 98.6 09/17/21 07:24 2.0 I & O 09/17/21 09/17/21 09/18/21 15:00 23:00 07:00 Intake Total 460 ml 768 ml Output Total 200 ml 640 ml 320 ml Balance -200 ml -180 ml 448 ml Physical Exam General: Alert, Cooperative Heart: Regular rate Lungs: Clear, Wheezing, Crackles Abdomen: No tenderness Extremities: No edema Skin: No rashes Labs Labs: Laboratory Tests Test 09/18/21 05:00 White Blood Count 8.7 x10^3/uL (4.0-11.0) Red Blood Count 4.11 x10^6/uL (4.30-5.70) Hemoglobin 12.2 g/dL (13.0-17.5) Hematocrit 37.2 % (39.0-53.0) Mean Corpuscular Volume 90 fL (79-100) Mean Corpuscular Hemoglobin 30 pg (25-35) Mean Corpuscular Hemoglobin Concent 33 g/dL (31-37) Red Cell Distribution Width 15.3 % (11.5-14.5) Platelet Count 233 x10^3/uL (140-400) Neutrophils (%) (Auto) 62 % (31-73) Lymphocytes (%) (Auto) 22 % (24-48) Monocytes (%) (Auto) 8 % (0-9) Eosinophils (%) (Auto) 8 % (0-3) Basophils (%) (Auto) 0 % (0-3) Neutrophils # (Auto) 5.4 x10^3/uL (1.8-7.7) Lymphocytes # (Auto) 1.9 x10^3/uL (1.0-4.8) Monocytes # (Auto) 0.7 x10^3/uL (0.0-1.1) Eosinophils # (Auto) 0.7 x10^3/uL (0.0-0.7) Basophils # (Auto) 0.0 x10^3/uL (0.0-0.2) Sodium Level 144 mmol/L (136-145) Potassium Level 3.8 mmol/L (3.5-5.1) Chloride Level 110 mmol/L (98-107) Carbon Dioxide Level 27 mmol/L (21-32) Anion Gap 7 (6-14) Blood Urea Nitrogen 23 mg/dL (8-26) Creatinine 0.9 mg/dL (0.7-1.3) Estimated GFR (Cockcroft-Gault) 80.6 Glucose Level 85 mg/dL (70-99) Calcium Level 8.1 mg/dL (8.5-10.1) Phosphorus Level 2.8 mg/dL (2.6-4.7) Magnesium Level 2.0 mg/dL (1.8-2.4) Assessment and Plan Assessmemt and Plan Problems Medical Problems: (1) Atypical pneumonia Status: Acute (2) Catheter (urine) change required Status: Acute (3) Gross hematuria Status: Acute (4) UTI (urinary tract infection) Status: Acute Comment Review of Relevant I have reviewed the following items eusebio (where applicable) has been applied. Medications: Current Medications Medications (Trade) Dose Ordered Sig/Art Route PRN Reason Start Time Stop Time Status Last Admin Dose Admin Lactobacillus Rhamnosus (Culturelle) 1 cap BID PO 09/17/21 21:00 09/18/21 09:44 Doxycycline Hyclate (Vibra-Tab) 100 mg BID PO 09/17/21 21:00 09/18/21 09:44 Sodium Chloride 1,000 ml @ 100 mls/hr Q10H IV 09/18/21 00:00 09/18/21 19:59 09/18/21 11:05 Justifications for Admission Other Justification ROSIE CHERRY MD Sep 18, 2021 12:38
[2021-09-18 15:00] VITALS: BP 136/70
[2021-09-18 19:30] VITALS: BP 117/63
--- NOTE | 2021-09-18 20:15 | NUR ---
Called Dr Flores, notified of consult, reason for consult, urine culture results and antibiotics patient is receiving. No orders at this time.
[2021-09-18 23:30] VITALS: BP 94/51
[2021-09-19 03:30] VITALS: BP 111/63
[2021-09-19] MEDS: MEROPENEM 500 MG in IV NORMAL SALINE 50ML 50 ML IV SCH ×3 (06:00→20:53)
[2021-09-19 07:00] VITALS: BP 113/51
--- NOTE | 2021-09-19 08:02 | PDOC ---
Infectious Disease Note Vital Sign Vital Signs Vital Signs Date Time Temp Pulse Resp B/P (MAP) Pulse Ox O2 Delivery O2 Flow Rate FiO2 09/19/21 07:00 98.0 70 18 113/51 (71) 99 Room Air 98.0 Labs Micro Microbiology 09/17/21 Urine Culture - Final, Complete 09/17/21 Antimicrobic Susceptibility - Final, Complete Objective Assessment Pt seen, consult dictated Plan Plan of Care / LUIS CABAN MD Sep 19, 2021 08:02
[2021-09-19] MEDS: LACTOBACILLUS RHAMNOSUS GG 1 CAPSULE. PO SCH ×2 (08:23→20:39)
[2021-09-19] MEDS: DOXYCYCLINE HYCLATE 100 MG TABLET PO SCH ×2 (08:23→20:39)
--- NOTE | 2021-09-19 08:25 | CONS ---
DATE OF CONSULTATION: 09/19/2021 REQUESTING PHYSICIAN: Dr. Genaro Dominguez. REASON FOR CONSULTATION: Complicated UTI. HISTORY OF PRESENT ILLNESS: This is an 81-year-old gentleman who is a residential resident, who was brought in because of gross blood in the urine. The patient does have a catheter in place at the nursing facility. The patient has a baseline dementia, not able to provide much information. The patient was found to have ESBL producing E. coli UTI. White count was 14,000. The patient is now back to his baseline, being treated with meropenem. The patient denies any nausea, vomiting, diarrhea, chest pain, shortness of breath, abdominal pain, urinary symptoms or bowel symptoms, although the patient is not able to provide any meaningful history. PAST MEDICAL HISTORY: Positive for hypertension, coronary artery disease, benign prostatic hypertrophy, urinary retention requiring chronic Duckworth catheter, arthritis. SOCIAL HISTORY: Negative for smoking, alcohol, illicit drug use. residential resident. ALLERGIES: No known drug allergies. CURRENT MEDICATIONS: Reviewed. REVIEW OF SYSTEMS: As in HPI. All other systems reviewed are negative. PHYSICAL EXAMINATION: GENERAL: Alert and oriented gentleman, not in distress. VITAL SIGNS: Stable, afebrile. HEENT: NAD. NECK: Supple. LUNGS: Clear. HEART: S1, S2, regular. ABDOMEN: Benign. EXTREMITIES: No edema, cyanosis. SKIN: Unremarkable. NEUROLOGIC: The patient does move all extremities, but memory is very poor. GENITOURINARY: Does have a Duckworth catheter in place, has been replaced on admission. LABORATORY DATA: White count is down to 8000. BUN and creatinine is normal. Chest x-ray is unremarkable. IMPRESSION: 1. Extended-spectrum beta-lactamase Escherichia coli complicated urinary tract infection, with catheter in place, has been replaced. 2. Leukocytosis. 3. Dementia. 4. Benign prostatic hypertrophy. 5. Encephalopathy. RECOMMENDATIONS: Continue meropenem. The patient can be discharged on IV Invanz, total 10 days of therapy. Thank you very much, Dr. Dominguez, for giving me opportunity to participate in this patient's care. ERIN CHRISTINE: HELIO/juan TID: [id number]
[2021-09-19 10:54] VITALS: BP 99/49
--- NOTE | 2021-09-19 14:10 | PDOC ---
[employer] PROGRESS NOTE Date of Service DOS: DATE: 09/19/21 TIME: 14:08 Chief Complaint Chief Complaint Hematuria Acute UTI, complicated in male Atypical pneumonia, possible gram-negative organisms We will consult infectious disease for timing and length for antibiotic course and coverage for complicated UTI Continue empiric IV antibiotics Will give meropenem and doxcyline for treatment of UTI and pneumonia. Will discuss admission with hospitalist Hold for hematuria for DVT prophylaxis ADA diet CODE STATUS DNR Discussed with RN and SW Disposition inpatient management as above DPOA: Komal Wood, daughter History of Present Illness History of Present Illness 81 year old male with history of chronic indwelling Duckworth, HTN, arthritis who presents with gross blood in his urinary catheter starting at 8 PM last night Staff at his long-term care facility states that he seems slightly off of his baseline starting at 10 PM last night. Patient denies any pain. Denies any other symptoms. Is able to state his name, month, and location. 09/18/2021 No acute events overnight. Patient seen and examined bedside. Catheter clearing up. No gross blood seen. Adequate urine output. Afebrile last 24 hours. White count trending downwards. Continue with IV meropenem and doxycycline for now. Patient's chart, labs, images were reviewed and discussed with RN September 19, 2021 No acute events overnight. Patient seen examined bedside. Afebrile last 24 hours. Urine cultures have grown ESBL E. coli with greater than 100,000 CFU. Patient will need to continue meropenem IV for another 10 days. Patient will need to find a facility that is able to administer IV antibiotics. Will attempt to set up patient for PICC line once facility has been decided. Appreciate social psychologist for attempting to arrange this. Patient's chart, labs, images were reviewed and discussed with RN Vitals/I&O Vitals/I&O: Vital Signs Date Time Temp Pulse Resp B/P (MAP) Pulse Ox O2 Delivery O2 Flow Rate FiO2 09/19/21 10:54 98.4 62 16 99/49 (66) 97 Room Air 98.4 I & O 09/18/21 09/18/21 09/19/21 15:00 23:00 07:00 Intake Total 50 ml 220 ml 1773 ml Output Total 155 ml 445 ml 270 ml Balance -105 ml -225 ml 1503 ml Physical Exam General: Alert, Cooperative Heart: Regular rate Lungs: Clear, Wheezing, Crackles Abdomen: No tenderness Extremities: No edema Skin: No rashes Assessment and Plan Assessmemt and Plan Problems Medical Problems: (1) Atypical pneumonia Status: Acute (2) Catheter (urine) change required Status: Acute (3) Gross hematuria Status: Acute (4) UTI (urinary tract infection) Status: Acute Comment Review of Relevant I have reviewed the following items eusebio (where applicable) has been applied. Justifications for Admission Other Justification ROSIE CHERRY MD Sep 19, 2021 14:10
[2021-09-19 14:59] VITALS: BP 111/59
--- NOTE | 2021-09-19 15:13 | NUR ---
SS following up with discharge planning. SS reviewed pt chart and discussed with pt RN. Pt is currently on room air. Pt refusing cares today. SS was notified that pt would need IV antibiotics post discharge. Pt currently on IV Meropenem. COVID19 negative. Pt wanting to return to [facility] post discharge. Pt reporting that he will not go to skilled facility. Pt not wanting IV antibiotics at home. SS contacted ED Marisol at [facility], ; fax [phone], and pt's daughter, Komal, and discussed. Per Marisol, referral to [facility], ; fax [phone], was made prior to hospital admission. Pt's daughter agreeable to hospice. SS contacted [facility] and they are agreeable to begin services with pt. Dr. Dominguez notified. Clinical updates phoned and faxed to [facility] and [facility]. Pt's RN notified. SS will continue to follow for discharge planning.
--- NOTE | 2021-09-19 19:14 | NUR ---
Patient transferred to room 578, report called. Patient belongings went with patient. Attempted to call patient's daughter, Komal, left a message on her voicemail.
[2021-09-19 19:30] VITALS: BP 113/52
--- NOTE | 2021-09-19 20:30 | NUR ---
Pt. received from ICU via wheelchair. Pt. refusing all cares except some meds. Agree with DEGREE CLERK's assessment.
[2021-09-19 23:00] VITALS: BP 116/59
[2021-09-20 03:00] VITALS: BP 111/57
[2021-09-20] MEDS: MEROPENEM 500 MG in IV NORMAL SALINE 50ML 50 ML IV SCH ×2 (05:33→15:21)
[2021-09-20 07:00] VITALS: BP 110/57
--- NOTE | 2021-09-20 08:32 | PDOC ---
[employer] PROGRESS NOTE Date of Service DOS: DATE: 09/20/21 TIME: 08:31 Chief Complaint Chief Complaint Hematuria Acute UTI, complicated in male Atypical pneumonia, possible gram-negative organisms We will consult infectious disease for timing and length for antibiotic course and coverage for complicated UTI Continue empiric IV antibiotics Will give meropenem and doxcyline for treatment of UTI and pneumonia. Will discuss admission with hospitalist Hold for hematuria for DVT prophylaxis ADA diet CODE STATUS DNR Discussed with RN and SW Disposition inpatient management as above DPOA: Komal Wood, daughter History of Present Illness History of Present Illness 09/20/2020 Patient seen and examined Discussed with RN Plan is to discharge with [facility] today 81 year old male with history of chronic indwelling Duckworth, HTN, arthritis who presents with gross blood in his urinary catheter starting at 8 PM last night Staff at his long-term care facility states that he seems slightly off of his ba seline starting at 10 PM last night. Patient denies any pain. Denies any other symptoms. Is able to state his name, month, and location. 09/18/2021 No acute events overnight. Patient seen and examined bedside. Catheter clearing up. No gross blood seen. Adequate urine output. Afebrile last 24 hours. White count trending downwards. Continue with IV meropenem and doxycycline for now. Patient's chart, labs, images were reviewed and discussed with RN September 19, 2021 No acute events overnight. Patient seen examined bedside. Afebrile last 24 hours. Urine cultures have grown ESBL E. coli with greater than 100,000 CFU. Patient will need to continue meropenem IV for another 10 days. Patient will need to find a facility that is able to administer IV antibiotics. Will attempt to set up patient for PICC line once facility has been decided. Appreciate social work supervisor for attempting to arrange this. Patient's chart, labs, images were reviewed and discussed with RN Vitals/I&O Vitals/I&O: Vital Signs Date Time Temp Pulse Resp B/P (MAP) Pulse Ox O2 Delivery O2 Flow Rate FiO2 09/20/21 03:00 97.8 69 16 111/57 (75) 95 Room Air 97.8 I & O 09/19/21 09/19/21 09/20/21 15:00 23:00 07:00 Intake Total 530 ml 530 ml 50 ml Output Total 300 ml 500 ml 675 ml Balance 230 ml 30 ml -625 ml Physical Exam General: No acute distress Heart: Regular rate Lungs: Clear, Wheezing, Crackles Abdomen: No tenderness Extremities: No edema Skin: No rashes Assessment and Plan Assessmemt and Plan Problems Medical Problems: (1) Atypical pneumonia Status: Acute (2) Catheter (urine) change required Status: Acute (3) Gross hematuria Status: Acute (4) UTI (urinary tract infection) Status: Acut Plan is to discharge with [facility] at [facility] today Comment Review of Relevant I have reviewed the following items eusebio (where applicable) has been applied. Justifications for Admission Other Justification STEFANIE LEE III DO Sep 20, 2021 08:32
[2021-09-20] MEDS ORDERED: DOXY100T PO (08:35)
--- NOTE | 2021-09-20 08:35 | SNU/HH DC ---
DISCHARGE ORDERS DISCHARGE INFORMATION: FINAL DIAGNOSIS Problems Medical Problems: (1) Atypical pneumonia Status: Acute (2) Catheter (urine) change required Status: Acute (3) Gross hematuria Status: Acute (4) UTI (urinary tract infection) Status: Acute CONDITION ON DISCHARGE: Stable CODE STATUS: Code Status: DNR/DNI FCI: SNF STAY <30 DAYS: No HOSPICE: HOSPICE: Yes HOSPICE EVAL & TREAT: Yes LTAC: ADMIT TO LTAC: No POST DISCHARGE ORDERS: ACTIVITY ORDERS: Activity as tolerated WEIGHT BEARING STATUS: As tolerated DIET AFTER DISCHARGE: Cardiac WOUND/INCISION CARE: No wound care needed CHECKS AFTER DISCHARGE: CHECKS AFTER DISCHARGE: Check blood press - daily FOLLOW-UP: LAB ORDERS FOR FOLLOW-UP: Urology - Dr. Jo - urinary retention TREATMENT/EQUIPMENT ORDERS: ADAPTIVE EQUIPMENT NEEDED: None DISCHARGE MEDICATIONS: Home Meds Active Scripts Doxycycline Hyclate (DOXYCYCLINE HYCLATE) 100 Mg Tablet, 100 MG PO BID for . for 7 Days, #14 TAB Prov:JESUS,ZAHRAAL K III DO 09/20/21 Reported Medications Tolterodine Tartrate (DETROL LA) 2 Mg Cap.er.24h, 1 CAP PO DAILY for BLADDER SPASMS, #30 CAP 2 Refills 08/11/21 Tamsulosin Hcl (FLOMAX) 0.4 Mg Cap.er.24h, 1 CAP PO HS for BPH, #30 CAP 11 Refills 08/11/21 Mirtazapine (MIRTAZAPINE) 15 Mg Tablet, 1 TAB PO QHS for DEPRESSION, #30 TAB 3 Refills 08/11/21 Melatonin (MELATONIN) 3 Mg Tablet, 2 TAB PO QHS for INSOMNIA, #30 TAB 2 Refills 08/11/21 Ibuprofen (IBUPROFEN) 400 Mg Tablet, 400 MG PO TID for CHRONIC PAIN , TAB 08/11/21 Discontinued Reported Medications Docusate Sodium (DOCUSATE SODIUM) 100 Mg Capsule, 2 CAP PO BID for constipation for 7 Days, #28 CAP 0 Refills 08/11/21 ZAHRAA LEEL K III DO Sep 20, 2021 08:35
[2021-09-20] MEDS: LACTOBACILLUS RHAMNOSUS GG 1 CAPSULE. PO SCH (08:44)
[2021-09-20] MEDS: DOXYCYCLINE HYCLATE 100 MG TABLET PO SCH (08:44)
--- NOTE | 2021-09-20 08:55 | DS ---
DATE OF DISCHARGE: 09/20/2021 ADMITTING DIAGNOSES: Hematuria, acute urinary tract infection, atypical pneumonia and sepsis. DISCHARGE DIAGNOSES: Resolving hematuria, resolving pneumonia, resolving urinary tract infection, history of arthritis, depression, hypertension, advanced age, chronic indwelling Duckworth. HOSPITAL COURSE: The patient is a pleasant elderly male who presented with UTI with hematuria and sepsis and pneumonia, was admitted to the ICU. He received fluids, IV antibiotics. We consulted Infectious Disease. Over the past few days, he has returned to his baseline, but is quite debilitated. It has been decided that he will go back to his long-term care facility at [facility] with [facility]. DISPOSITION: [facility] at his long-term care facility. ACTIVITY: As tolerated. DIET: Low sodium. MEDICATIONS: Doxycycline 100 p.o. b.i.d., p.r.n. ibuprofen, melatonin 2 at bedtime, mirtazapine 15 at bedtime, Flomax 0.4 a day and Detrol-LA 2 mg a day and p.r.n. comfort meds per the hospice team. CALEB DR: Wilmar TID: [id number]
--- NOTE | 2021-09-20 09:00 | PDOC ---
Infectious Disease Note Subjective Subjective And is feeling good denies any complaints ROS ROS No nausea vomiting diarrhea chest pain shortness of Vital Sign Vital Signs Vital Signs Date Time Temp Pulse Resp B/P (MAP) Pulse Ox O2 Delivery O2 Flow Rate FiO2 09/20/21 08:00 Room Air 09/20/21 03:00 97.8 69 16 111/57 (75 95 97.8 Physical Exam PHYSICAL EXAM GENERAL: Alert and oriented gentleman, not in distress. VITAL SIGNS: Stable, afebrile. HEENT: NAD. NECK: Supple. LUNGS: Clear. HEART: S1, S2, regular. ABDOMEN: Benign. EXTREMITIES: No edema, cyanosis. SKIN: Unremarkable. NEUROLOGIC: The patient does move all extremities, but memory is very poor. GENITOURINARY: Does have a Duckworth catheter in place, has been replaced on admission. Labs Micro URINE CULTURE Final Final GREATER THAN 100,000 CFU/ML [ESCHERICHIA COLI ESBL] on 09/18/21 at 0901 Testing Performed by: [address] [address] For Inquires, the Physician may contact the Microbiology department at [phone] ESCHERICHIA COLI ESBL ANTIMICROBIAL SUSCEPTIBILITY Final Comment NEG ZEFERINO 56 ESCHERICHIA COLI ESBL ANTIBIOTIC RESULT INTERPRETATION AMPICILLIN/SULBACTAM 8/4 S AMIKACIN <=16 S AMPICILLIN >16 R* AMOXICILLIN/K CLAVULANATE <=8/4 S AZTREONAM >16 ESBL CEFTRIAXONE >32 ESBL CEFTAZIDIME 16 ESBL CEFOTAXIME-ESBL >1 ESBL CEFOTAXIME >32 ESBL CEFOXITIN <=8 S CEFAZOLIN >16 R* CIPROFLOXACIN >2 R CEFEPIME >16 R* CEFUROXIME >16 R* CEFTAZIDIME/AVIBACTAM <=4 S ERTAPENEM <=0.5 S NITROFURANTOIN <=32 S GENTAMICIN <=2 S LEVOFLOXACIN >4 R MEROPENEM <=1 S PIPERACILLIN/TAZOBACTAM <=8 S TRIMETHOPRIM/SULFAMETHOXAZOLE >2/38 R TETRACYCLINE >8 R TOBRAMYCIN <=2 S RUN DATE: 09/19/21 [facility] *LIVE* PAGE 2 RUN TIME: 0735 Specimen Inquiry SPEC: [id number] PATIENT: HENRY SOUZA [id number] (Continued) ----- ------- Procedure Result CONTINUED ON NEXT PAGE RUN DATE: 09/19/21 [facility] *LIVE* PAGE 3 RUN TIME: 734 Specimen Inquiry SPEC: [id number] PATIENT: HENRY SOUZA [id number] (Continued) Objective Assessment IMPRESSION: 1. Extended-spectrum beta-lactamase Escherichia coli complicated urinary tract infection, with catheter in place, has been replaced. 2. Leukocytosis. 3. Dementia. 4. Benign prostatic hypertrophy. 5. Encephalopathy. Plan Plan of Care Patient can be discharged on IV Invanz for 10 days There is is some talk going on about possible hospice for LUIS CHEN MD Sep 20, 2021 09:00
[2021-09-20 11:00] VITALS: BP 117/59
--- NOTE | 2021-09-20 15:18 | NUR ---
SW following. Discussed with RN, Joaquin Mclaughlin trying to reach pt's daughter as she was unsure if pt was going home with hospice today. Joaquin Mclaughlin has called and texted pt's daughter multiple times. [facility] transportation arranged for 1600 for pt to return to [facility]. RN notified. No further SW needs.
--- NOTE | 2021-09-20 16:57 | NUR ---
20 guage IV in left FA removed, tip intact. patient tolerated well. patient discharged and transported back to [facility] via [facility] at 1638.
== END 2021-09-20 16:38 | disposition hospice, inpatient (51) | DRG 871 ==
LOC: ER 03:38 → 1 WEST ICU 05:56 → 5 SOUTH 09-19 20:17
PROVIDERS: ADMIT Internal Medicine; ATTEND Internal Medicine
DX: A41.9 Sepsis, unspecified organism (principal); J18.9 Pneumonia, unspecified organism; N39.0 Urinary tract infection, site not specified; G93.40 Encephalopathy, unspecified; B96.20 Unspecified Escherichia coli [E. coli] as the cause of diseases classified elsewhere; F03.90 Unspecified dementia, unspecified severity, without behavioral disturbance, psychotic disturbance, mood disturbance, and anxiety; I10 Essential (primary) hypertension; I25.10 Atherosclerotic heart disease of native coronary artery without angina pectoris; N40.1 Benign prostatic hyperplasia with lower urinary tract symptoms; R31.0 Gross hematuria; Z66 Do not resuscitate; F32.A Depression, unspecified; M19.90 Unspecified osteoarthritis, unspecified site; R33.8 Other retention of urine; Z20.822 Contact with and (suspected) exposure to COVID-19
CPT/HCPCS: 36415; 71045; 80048; 80053; 81001; 82550; 83735; 84100; 85007; 85025; 87077; 87086; 87186; 87426; J2185; J7030; U0003; U0005; 99285-25; G0378